=== PATIENT | male | born 1980 | race Caucasian/White ===

== ENCOUNTER 2016-03-17 18:15 | Inpatient (IN) | payer MEDICAID ==
[~2016-03-17] VITALS: Ht 175.3 cm; Wt 87.0 kg
[~2016-03-17 18:15] MED LIST: OMEP20TA PO; ONDA4 PO; RANI150T PO
[2016-03-17 18:28] VITALS: BP 126/87; PULSE 76; RESP 16; TEMP 98.6; O2SAT 98
[2016-03-17] MEDS ORDERED: SODIUM CHLOR 0.9% 1000 ML INJ 1,000 ML IV SCH (22:55)
--- NOTE | 2016-03-17 22:58 | PD ---
HPI Chief Complaint: Abdominal Pain Time Seen by Provider: 22:49 Travel History International Travel<30 days: No Contact w/Intl Traveler<30days: No Traveled to known affect area: No History of Present Illness HPI 36-year-old male here for evaluation of epigastric abdominal pain. The patient has been having intermittent epigastric abdominal pain for the last several months, worse and more constant over the last 4 days. Pain is described as pressure, radiates to his back, no modifying factors. He did become nauseous yesterday and had a few episodes of nonbloody/nonbilious emesis. No history of abdominal surgeries. No chest pain. No known history of cardiac disease. He smokes about a half a pack of cigarettes per day. States that he used to drink alcohol heavily when he was younger, only drinks alcohol occasionally over the last 8 years. He was seen in the emergency Department in April of last year and was found to have LFTs in the 4-500 range and was instructed to follow-up as an outpatient, however he has not done so. No history of IVDU. No fevers or chills. PFSH Past Medical History Diminished Hearing: No GERD: Yes Tetanus Vaccination: < 5 Years Influenza Vaccination: No Past Surgical History Surgical History: No Previous Surgery Social History Alcohol Use: No Tobacco Use: Yes (03/01 PPD) Substance Use: No Allergies-Medications (Allergen,Severity, Reaction): Coded Allergies: Penicillin (Verified Allergy, Severe, HIVES, 03/17/16) Reported Meds & Prescriptions Reported Meds & Active Scripts Active No Active Prescriptions or Reported Medications Review of Systems Except as stated in HPI: all other systems reviewed are Neg Physical Exam Narrative GENERAL: Well-developed, well-nourished, comfortable, no acute distress. SKIN: Warm and dry. No rash. HEAD: Atraumatic. Normocephalic. EYES: Pupils equal and round. No scleral icterus. No injection or drainage. ENT: Mucous membranes pink and moist. NECK: Trachea midline. No JVD. CARDIOVASCULAR: Regular rate and rhythm. RESPIRATORY: No accessory muscle use. Clear to auscultation. Breath sounds equal bilaterally. GASTROINTESTINAL: Abdomen soft, nondistended. Moderate epigastric tenderness without rebound or guarding. There is also some left upper quadrant tenderness. Negative Bush sign. Rest of abdomen is soft and nontender. No hernias. Normal bowel sounds. MUSCULOSKELETAL: No obvious deformities. No clubbing. No cyanosis. No edema. NEUROLOGICAL: Awake and alert. No obvious cranial nerve deficits. Motor grossly within normal limits. Normal speech. PSYCHIATRIC: Appropriate mood and affect; insight and judgment normal. Data Data Last Documented VS Vital Signs Date Time Temp Pulse Resp B/P Pulse Ox O2 Delivery O2 Flow Rate FiO2 03/17/16 23:57 70 16 116/81 96 Room Air 03/17/16 18:28 98.6 Orders Complete Blood Count With Diff (03/17/16 22:55) Comprehensive Metabolic Panel (03/17/16 22:55) Lipase (03/17/16 22:55) Prothrombin Time / Inr (Pt) (03/17/16 22:55) Act Partial Throm Time (Ptt) (03/17/16 22:55) Urinalysis - C+S If Indicated (03/17/16 22:55) Ct Abd/Pel W Iv Contrast(Rout) (03/17/16 22:55) Iv Access Insert/Monitor (03/17/16 22:55) Ecg Monitoring (03/17/16 22:55) Oximetry (03/17/16 22:55) Morphine Inj (Morphine Inj) (03/17/16 23:00) Ondansetron Inj (Zofran Inj) (03/17/16 23:00) Pantoprazole Inj (Protonix Inj) (03/17/16 23:00) Sodium Chlor 0.9% 1000 Ml Inj (Ns 1000 M (03/17/16 22:55) Sodium Chloride 0.9% Flush (Ns Flush) (03/17/16 23:00) Electrocardiogram (03/17/16 22:55) Al-Mag Hy-Si 40-40-4 Mg/Ml Liq (Mag-Al P (03/17/16 23:00) Lidocaine 2% Viscous (Xylocaine 2% Visco (03/17/16 23:00) Ckmb (Isoenzyme) Profile (03/17/16 22:55) Troponin I (03/17/16 22:55) CKMB (03/17/16 22:55) CKMB% (03/17/16 22:55) Iohexol 350 Inj (Omnipaque 350 Inj) (03/17/16 23:35) Levofloxacin 750 Mg Premix Inj (Levaquin (03/18/16 00:15) Diet Npo (03/18/16 Breakfast) Labs Laboratory Tests Test 03/17/16 03/17/16 22:45 22:55 Urine Color YELLOW Urine Turbidity CLEAR Urine pH 6.0 Urine Specific [place] 1.015 Urine Protein NEG mg/dL Urine Glucose (UA) NEG mg/dL Urine Ketones NEG mg/dL Urine Occult Blood NEG Urine Nitrite NEG Urine Bilirubin NEG Urine Leukocyte Esterase NEG Urine RBC 0-2 /hpf Urine WBC 0-2 /hpf Urine Squamous Epithelial 0-5 /hpf Cells Urine Bacteria NONE /hpf Microscopic Urinalysis Comment CULT NOT INDICATED White Blood Count 11.0 TH/MM3 Red Blood Count 5.12 MIL/MM3 Hemoglobin 16.0 GM/DL Hematocrit 48.2 % Mean Corpuscular Volume 94.1 FL Mean Corpuscular Hemoglobin 31.4 PG Mean Corpuscular Hemoglobin 33.3 % Concent Red Cell Distribution Width 11.8 % Platelet Count 267 TH/MM3 Mean Platelet Volume 8.2 FL Neutrophils (%) (Auto) 50.3 % Lymphocytes (%) (Auto) 38.9 % Monocytes (%) (Auto) 7.2 % Eosinophils (%) (Auto) 2.4 % Basophils (%) (Auto) 1.2 % Neutrophils # (Auto) 5.5 TH/MM3 Lymphocytes # (Auto) 4.3 TH/MM3 Monocytes # (Auto) 0.8 TH/MM3 Eosinophils # (Auto) 0.3 TH/MM3 Basophils # (Auto) 0.1 TH/MM3 CBC Comment DIFF FINAL Differential Comment Prothrombin Time 10.8 SEC Prothromb Time International 1.0 RATIO Ratio Activated Partial 26.8 SEC Thromboplast Time Sodium Level 140 MEQ/L Potassium Level 3.6 MEQ/L Chloride Level 104 MEQ/L Carbon Dioxide Level 29.2 MEQ/L Anion Gap 7 MEQ/L Blood Urea Nitrogen 14 MG/DL Creatinine 0.98 MG/DL Estimat Glomerular Filtration 87 ML/MIN Rate Random Glucose 98 MG/DL Calcium Level 9.0 MG/DL Total Bilirubin 0.5 MG/DL Aspartate Amino Transf 55 U/L (AST/SGOT) Alanine Aminotransferase 108 U/L (ALT/SGPT) Alkaline Phosphatase 79 U/L Total Creatine Kinase 178 U/L Creatine Kinase MB 2.0 NG/ML Troponin I LESS THAN 0.02 NG/ML Total Protein 7.7 GM/DL Albumin 3.9 GM/DL Lipase 139 U/L MDM Medical Decision Making Medical Screen Exam Complete: Yes Emergency Medical Condition: Yes Medical Record Reviewed: Yes Interpretation(s) EKG: Sinus, rate 62, normal axis, normal intervals, RSR prime in V1, no acute ischemic abnormality. Differential Diagnosis Gastritis, peptic ulcer disease, pancreatitis, hepatobiliary disease, ACS Narrative Course Vital signs are within normal limits. CBC is unremarkable. CMP is remarkable for AST 55, ALT 108, otherwise unremarkable. Cardiac enzymes are negative. Lipase is 139. UA is normal, not suggestive of UTI. CT abdomen pelvis: CONCLUSION: 4 mm distal common bile duct stone. 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 I did not believe he has ascending cholangitis. 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 Negro. He recommends starting the patient on prophylactic antibiotics and admitting the patient to the main hospital for ERCP tomorrow morning. The patient is allergic to penicillin. He will be started on Levaquin. The patient was made aware of all findings and plan for admission. Case discussed with hospitalist Dr. Leon who will admit the patient to her service. Diagnosis Primary Impression: Choledocholithiasis Scripts No Active Prescriptions or Reported Meds Guido Escobedo MD Mar 17, 2016 22:58
[2016-03-17] MEDS ORDERED: ONDANSETRON HCL 4 MG/2 ML VIAL IVP ONE (23:00)
[2016-03-17] MEDS ORDERED: ALUMINUM/MAGNESIUM/SIMETH 30 ML CUP PO ONE (23:00)
[2016-03-17] MEDS ORDERED: LIDOCAINE VISCOUS 2% SOLN 15 ML UDC PO ONE (23:00)
[2016-03-17] MEDS ORDERED: PANTOPRAZOLE SODIUM 40 MG VIAL IVP ONE (23:00)
[2016-03-17] MEDS ORDERED: MORPHINE SULFATE 4 MG/ML INJ IV PUSH ONE (23:00)
[2016-03-17] MEDS ORDERED: SODIUM CHLORIDE 0.9% FLUSH 5 ML FLUSH IVF PRN (23:00)
[2016-03-17 23:08] LABS: BLOOD, URINE NEG (NEG); GLUCOSE,URINE NEG (NEG); KETONE, URINE NEG (NEG); NITRITE,URINE NEG (NEG)
[2016-03-17 23:11] LABS: AUTOMATED NEUTROPHIL # 5.5 TH/MM3 (1.8-7.7); BASOPHIL # 0.1 TH/MM3 (0-0.2); BASOPHIL % 1.2 % (0.0-2.0); EOSINOPHIL # 0.3 TH/MM3 (0-0.4); EOSINOPHIL % 2.4 % (0.0-4.0); HEMATOCRIT 48.2 % (39.0-51.0); HEMO FLAGS DIFF FINAL; LYMPH % 38.9 % (9.0-44.0); LYMPHOCYTE # 4.3 TH/MM3 (1.0-4.8); MEAN CELL VOLUME 94.1 FL (80.0-100.0); MEAN CORPUSCULAR HEMOGLOBIN 31.4 PG (27.0-34.0); MEAN CORPUSCULAR HGB CONC 33.3 % (32.0-36.0); MONO % 7.2 % (0.0-8.0); NEUT % 50.3 % (16.0-70.0); PLATELET COUNT 267 TH/MM3 (150-450); RED BLOOD COUNT 5.12 MIL/MM3 (4.50-5.90); RED CELL DISTRIBUTION WIDTH 11.8 % (11.6-17.2)
[2016-03-17 23:16] LABS: URINE COLOR YELLOW (YELLW/STRAW); WBC, URINE 0-2 /hpf (0-5)
[2016-03-17 23:17] VITALS: PULSE 72; RESP 16; O2SAT 97
[2016-03-17 23:17] LABS: COMMENT (UR) CULT NOT INDICATED; CULTURE IF INDICATED CULT NOT INDICATED; RBC, URINE 0-2 /hpf (0-3); SQUAMOUS EPITHELIAL CELL URINE 0-5 /hpf (0-5)
[2016-03-17 23:18] LABS: CHLORIDE 104 MEQ/L (98-107); POTASSIUM 3.6 MEQ/L (3.5-5.1); SODIUM (NA) 140 MEQ/L (136-145)
[2016-03-17 23:22] LABS: ANION GAP 7 MEQ/L (5-15); BICARBONATE 29.2 MEQ/L (21.0-32.0); BLOOD UREA NITROGEN 14 MG/DL (7-18)
[2016-03-17 23:23] LABS: APTT (PATIENT) 26.8 SEC (24.3-30.1); PROTHROMBIN TIME - PATIENT 10.8 SEC (9.8-11.6)
[2016-03-17 23:25] LABS: ALT (GPT) 108 U/L (12-78); AST (GOT) 55 U/L (15-37); GLOMERULAR FILTRATION RATE 87 ML/MIN (>89)
[2016-03-17 23:26] LABS: TOTAL BILIRUBIN ADULT 0.5 MG/DL (0.2-1.0)
[2016-03-17 23:27] LABS: CREATINE KINASE 178 U/L (39-308)
[2016-03-17 23:28] LABS: ALKALINE PHOSPHATASE 79 U/L (45-117)
[2016-03-17] MEDS ORDERED: IOHEXOL 350 MG/ML 10 ML VIAL (for RAD DIAG) IV ONE (23:35)
--- NOTE | 2016-03-17 23:54 | RADHPO ---
EXAM DATE/TIME: 03/17/2016 23:30 [facility] COMPARISON: No previous studies available for comparison. INDICATIONS : Intermittent upper abdominal pain for three weeks. IV CONTRAST: 100 cc Omnipaque 350 (iohexol) IV ORAL CONTRAST: No oral contrast ingested. RADIATION DOSE: 13.19 CTDIvol (mGy) MEDICAL HISTORY : None SURGICAL HISTORY : None. ENCOUNTER: Initial ACUITY: 1 day PAIN SCALE: 5/10 LOCATION: Bilateral upper quadrant abdomen TECHNIQUE: Volumetric scanning of the abdomen and pelvis was performed. Using automated exposure control and ad justment of the mA and/or kV according to patient size, radiation dose was kept as low as reasonably achievable to obtain optimal diagnostic quality images. FINDINGS: LOWER LUNGS: There is a nearly 7 cm low density mass in the lower mediastinum adjacent to the distal esophagus. Th is has Hounsfield density measurements just greater than fluid. LIVER: There is no evidence of liver mass or intrahepatic biliary ductal dilatation. The extrahepatic biliar y tree is minimally prominent with common duct diameter of about 7 mm maximum. There is a 4 mm stone in the distal CBD at the level of the pancreatic head. Gallbladder is unremarkable with no additional stones identified. SPLEEN: Normal size without lesion. PANCREAS: Within normal limits. KIDNEYS: Normal in size and shape. There is no mass, stone or hydronephrosis. ADRENAL GLANDS: Within normal limits. VASCULAR: There is no aortic aneurysm. BOWEL/MESENTERY: The stomach, small bowel, and colon demonstrate no acute abnormality. There is no free intraperitone al air or fluid. ABDOMINAL WALL: Within normal limits. RETROPERITONEUM: There is no lymphadenopathy. BLADDER: No wall thickening or mass. REPRODUCTIVE: Within normal limits. INGUINAL: There is no lymphadenopathy or hernia. MUSCULOSKELETAL: Within normal limits for patient age. CONCLUSION: 4 mm distal common bile duct stone. 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 This report was verified electronically.
[2016-03-17 23:57] VITALS: BP 116/81; PULSE 70; RESP 16; O2SAT 96
[2016-03-18] MEDS ORDERED: LEVOFLOXACIN 750 MG PREMIX INJ 150 ML IV ONE (00:15)
[2016-03-18] MEDS: SODIUM CHLOR 0.9% 1000 ML INJ 1,000 ML IV SCH ×3 (00:29→18:24)
[2016-03-18] MEDS ORDERED: MORPHINE SULFATE 4 MG/ML INJ IV PUSH PRN (00:30)
[2016-03-18] MEDS ORDERED: NALOXONE HCL 0.4 MG/ML AMP IV PRN (00:30)
[2016-03-18] MEDS ORDERED: SODIUM CHLORIDE 0.9% FLUSH 5 ML FLUSH FLUSH PRN (00:30)
[2016-03-18] MEDS: metroNIDAZOLE 500 MG INJ 100 ML IV SCH ×4 (01:40→18:22)
[2016-03-18 02:46] VITALS: BP 123/78; PULSE 70; RESP 20; TEMP 98.3; O2SAT 97
--- NOTE | 2016-03-18 04:44 | HHI.HP ---
[facility] Primary [facility] Physician No Primary Care Physician Admission Diagnosis choledocholithiasis Diagnoses: Chief Complaint: abdominal pain Travel History International Travel<30 Days: No Contact w/Intl Traveler <30 Da: No Traveled to Known Affected Are: No History of Present Illness History taken from patient and ED physician. 36 y/o male with no medical history presented with complaints of sharp mid epigastric pain for 2 days with associated nausea and vomiting that began yesterday. He denies any chest pain, sob, fever or chills. He does not see a PCP because he states he has never been sick. Review of Systems Constitutional: DENIES: Fever, Chills Respiratory: DENIES: Cough, Sputum production, Shortness of breath Cardiovascular: DENIES: Chest pain, Lower Extremity Edema Gastrointestinal: COMPLAINS OF: Abdominal pain, Nausea, Vomiting, DENIES: Constipation, Diarrhea Genitourinary: DENIES: Hematuria, Dysuria Musculoskeletal: DENIES: Back pain, Neck pain Integumentary: DENIES: Rash Hematologic/lymphatic: DENIES: Lymphadenopathy Immunologic/allergic: DENIES: Urticaria Neurologic: DENIES: Headache Past Family Social History Past Medical History Patient denies any medical history Past Surgical History Patient denies any surgical history Reported Medications Reported Meds & Active Scripts Active No Active Prescriptions or Reported Medications Allergies: Coded Allergies: Penicillin (Verified Allergy, Severe, HIVES, 03/17/16) Active Ordered Medications Current Medications Medications (Trade) Dose Ordered Sig/Kat Route Start Time Stop Time Status Last Admin (NS 1000 ml Inj) 1,000 ml @ 100 mls/hr Q10H IV 03/18/16 00:29 03/18/16 00:29 (NS Flush) 2 ml UNSCH PRN FLUSH 03/18/16 00:30 (NS Flush) 2 ml BID FLUSH 03/18/16 09:00 (Zofran Inj) 4 mg Q6H PRN IVP 03/18/16 00:30 (Narcan Inj) 0.4 mg UNSCH PRN IV 03/18/16 00:30 Morphine Sulfate 2 mg 2 mg Q3H PRN IV PUSH 03/18/16 00:30 03/18/16 04:26 Levofloxacin/ Dextrose 150 ml @ 100 mls/hr Q24H IV 03/19/16 01:00 (Flagyl 500 Mg Inj) 100 ml @ 100 mls/hr Q6H IV 03/18/16 00:45 03/18/16 01:40 Family History Dad: diabetes Social History Tobacco use: 1 ppd Alcohol use: denies Illicit drug use: denies Physical Exam Vital Signs Vital Signs Date Time Temp Pulse Resp B/P Pulse Ox O2 Delivery O2 Flow Rate FiO2 03/18/16 02:46 98.3 70 20 123/78 97 03/17/16 23:57 70 16 116/81 96 Room Air 03/17/16 23:17 72 16 97 Room Air 03/17/16 18:28 98.6 76 16 126/87 98 Physical Exam GENERAL: This is a well-nourished, well-developed patient, in no apparent distress. SKIN: No rashes, ecchymoses or lesions. Cool and dry. HEAD: Atraumatic. Normocephalic. EYES: Pupils equal round and reactive. ENT: Nose without bleeding, purulent drainage or septal hematoma. Airway patent. NECK: Trachea midline. No JVD or lymphadenopathy. Supple, nontender, no meningeal signs. CARDIOVASCULAR: Regular rate and rhythm without murmurs, gallops, or rubs. RESPIRATORY: Clear to auscultation. Breath sounds equal bilaterally. No wheezes , rales, or rhonchi. GASTROINTESTINAL: Abdomen soft, mid epigastric tenderness, nondistended. MUSCULOSKELETAL: Extremities without clubbing, cyanosis, or edema. No calf tenderness. NEUROLOGICAL: Awake and alert. Motor and sensory grossly within normal limits. Normal speech. Laboratory Laboratory Tests Test 03/17/16 03/17/16 22:45 22:55 Urine Color YELLOW Urine Turbidity CLEAR Urine pH 6.0 Urine Specific [place] 1.015 Urine Protein NEG Urine Glucose (UA) NEG Urine Ketones NEG Urine Occult Blood NEG Urine Nitrite NEG Urine Bilirubin NEG Urine Leukocyte Esterase NEG Urine RBC 0-2 Urine WBC 0-2 Urine Squamous Epithelial 0-5 Cells Urine Bacteria NONE Microscopic Urinalysis Comment CULT NOT INDICATED White Blood Count 11.0 Red Blood Count 5.12 Hemoglobin 16.0 Hematocrit 48.2 Mean Corpuscular Volume 94.1 Mean Corpuscular Hemoglobin 31.4 Mean Corpuscular Hemoglobin 33.3 Concent Red Cell Distribution Width 11.8 Platelet Count 267 Mean Platelet Volume 8.2 Neutrophils (%) (Auto) 50.3 Lymphocytes (%) (Auto) 38.9 Monocytes (%) (Auto) 7.2 Eosinophils (%) (Auto) 2.4 Basophils (%) (Auto) 1.2 Neutrophils # (Auto) 5.5 Lymphocytes # (Auto) 4.3 Monocytes # (Auto) 0.8 Eosinophils # (Auto) 0.3 Basophils # (Auto) 0.1 CBC Comment DIFF FINAL Differential Comment Prothrombin Time 10.8 Prothromb Time International 1.0 Ratio Activated Partial 26.8 Thromboplast Time Sodium Level 140 Potassium Level 3.6 Chloride Level 104 Carbon Dioxide Level 29.2 Anion Gap 7 Blood Urea Nitrogen 14 Creatinine 0.98 Estimat Glomerular Filtration 87 Rate Random Glucose 98 Calcium Level 9.0 Total Bilirubin 0.5 Aspartate Amino Transf 55 (AST/SGOT) Alanine Aminotransferase 108 (ALT/SGPT) Alkaline Phosphatase 79 Total Creatine Kinase 178 Creatine Kinase MB 2.0 Troponin I LESS THAN 0.02 Total Protein 7.7 Albumin 3.9 Lipase 139 Result Diagram: 03/17/16225403/17/162254 Imaging Last Impressions Abdomen/Pelvis CT 03/17/162254 Signed Impressions: Service Date/Time: Thursday, March 17, 2016 23:30 - CONCLUSION: 4 mm distal common bile duct stone. 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 Leon on 03/17/16 at 0410. The documentation accurately reflects the work performed [id number] and decisions made by me and the physician Dr Leon on 03/17/16. The documentation accurately reflects the work performed [id number] by me on at 0410 Please note that this is a full inpatient admission note. Patient was admitted for choledocholithiasis/ERCP. Discussed Condition With Patient Misa Barahona Mar 18, 2016 04:44 Mariam Leon MD Mar 18, 2016 07:23
[2016-03-18 08:23] VITALS: BP 97/57; PULSE 74; RESP 18; TEMP 97.7; O2SAT 95
--- NOTE | 2016-03-18 08:44 | PD.CONS ---
HPI History of Present Illness This is a 36 year old male who has been having intermittent abdominal pain for awhile. This latest episode started on 02/27/16. This is a moderately severe pressure like pain in his epigastric area that radiates to his back. This was aggravated by any food intake. He did try some Pepcid AC, but states this actually made his symptoms worse. He also tried inducing vomiting once, but this did not help. About 2-3 days ago, the pain became worse and more constant. He had an episode of nausea/vomiting with undigested food. He denies any fever/chills/jaundice. He denies any bowel changes or constipation/ diarrhea, melena, or hematochezia. He denies any weight loss. Abdomen/Pelvis CT (03/17/16)-----> 4 mm distal common bile duct stone. 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 He denies any prior episodes of gallbladder issues. However, he was seen in the ER back in April form similar type pain and was noted to have elevated LFTs in an obstructive pattern at that time. He did not have any imaging done at that time and was discharged home with medicine for gastritis. (Tayla Albrecht) [facility] Past Medical History Denies Past Surgical History Denies (Tayla Albrecht) Coded Allergies: Penicillin (Verified Allergy, Severe, HIVES, 03/17/16) Medications Allergies Coded Allergies Type Severity Reaction Last Updated Verified Penicillin Allergy Severe HIVES 03/17/16 Yes Active Scripts Medications Dose Route/Sig Days Date Category No Active Prescriptions or Reported Medications Rx Family History Father has diabetes Mother from breast cancer Social History Smokes <1 ppd x 17 years No etoh, illicit drug use. (Tayla Albrecht) Review of Systems Constitutional: DENIES: Fatigue, Fever, Weight loss, Chills Respiratory: DENIES: Cough, Shortness of breath Cardiovascular: DENIES: Chest pain Gastrointestinal: COMPLAINS OF: Abdominal pain, Nausea, Vomiting, DENIES: Black stools, Bloody stools, Constipation, Diarrhea, Anorexia, Swelling of Abdomen, Heartburn, Hematemesis Musculoskeletal: COMPLAINS OF: Back pain Integumentary: DENIES: Abnormal pigmentation, Jaundice Hematologic/lymphatic: DENIES: Bruising Neurologic: DENIES: Headache Psychiatric: DENIES: Confusion (Tayla Albrecht) GI Exam Vitals I&O Vital Signs Date Time Temp Pulse Resp B/P Pulse Ox O2 Delivery O2 Flow Rate FiO2 03/18/16 08:23 97.7 74 18 97/57 95 03/18/16 02:46 98.3 70 20 123/78 97 03/17/16 23:57 70 16 116/81 96 Room Air 03/17/16 23:17 72 16 97 Room Air 03/17/16 18:28 98.6 76 16 126/87 98 I/O 03/17/16 03/17/16 03/17/16 03/18/16 03/18/16 03/18/16 07:00 15:00 23:00 07:00 15:00 23:00 Intake Total 1150 ml Output Total 300 ml Balance -300 ml 1150 ml Intake IV Total 1150 ml Output Urine Total 300 ml # Voids 1 Imaging Last Impressions Abdomen/Pelvis CT 03/17/16 2255 Signed Impressions: Service Date/Time: Thursday, March 17, 2016 23:30 - CONCLUSION: 4 mm distal common bile duct stone. 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 Sebas Cowart MD Laboratory Test 03/17/16 03/17/16 22:45 22:55 Urine Color YELLOW Urine Turbidity CLEAR Urine pH 6.0 Urine Specific [place] 1.015 Urine Protein NEG mg/dL Urine Glucose (UA) NEG mg/dL Urine Ketones NEG mg/dL Urine Occult Blood NEG Urine Nitrite NEG Urine Bilirubin NEG Urine Leukocyte Esterase NEG Urine RBC 0-2 /hpf Urine WBC 0-2 /hpf Urine Squamous Epithelial 0-5 /hpf Cells Urine Bacteria NONE /hpf Microscopic Urinalysis Comment CULT NOT INDICATED White Blood Count 11.0 TH/MM3 Red Blood Count 5.12 MIL/MM3 Hemoglobin 16.0 GM/DL Hematocrit 48.2 % Mean Corpuscular Volume 94.1 FL Mean Corpuscular Hemoglobin 31.4 PG Mean Corpuscular Hemoglobin 33.3 % Concent Red Cell Distribution Width 11.8 % Platelet Count 267 TH/MM3 Mean Platelet Volume 8.2 FL Neutrophils (%) (Auto) 50.3 % Lymphocytes (%) (Auto) 38.9 % Monocytes (%) (Auto) 7.2 % Eosinophils (%) (Auto) 2.4 % Basophils (%) (Auto) 1.2 % Neutrophils # (Auto) 5.5 TH/MM3 Lymphocytes # (Auto) 4.3 TH/MM3 Monocytes # (Auto) 0.8 TH/MM3 Eosinophils # (Auto) 0.3 TH/MM3 Basophils # (Auto) 0.1 TH/MM3 CBC Comment DIFF FINAL Differential Comment Prothrombin Time 10.8 SEC Prothromb Time International 1.0 RATIO Ratio Activated Partial 26.8 SEC Thromboplast Time Sodium Level 140 MEQ/L Potassium Level 3.6 MEQ/L Chloride Level 104 MEQ/L Carbon Dioxide Level 29.2 MEQ/L Anion Gap 7 MEQ/L Blood Urea Nitrogen 14 MG/DL Creatinine 0.98 MG/DL Estimat Glomerular Filtration 87 ML/MIN Rate Random Glucose 98 MG/DL Calcium Level 9.0 MG/DL Total Bilirubin 0.5 MG/DL Aspartate Amino Transf 55 U/L (AST/SGOT) Alanine Aminotransferase 108 U/L (ALT/SGPT) Alkaline Phosphatase 79 U/L Total Creatine Kinase 178 U/L Creatine Kinase MB 2.0 NG/ML Troponin I LESS THAN 0.02 NG/ML Total Protein 7.7 GM/DL Albumin 3.9 GM/DL Lipase 139 U/L Physical Examination HEENT: Normocephalic; atraumatic; no jaundice. Throat is clear. NECK: Neck is supple, no JVD, no lymphadenopathy. CHEST: CTA CARDIAC: RRR ABDOMEN: Soft, nondistended, mild epigastric tenderness; no hepatosplenomegaly ; bowel sounds are present in all four quadrants. EXTREMITIES: No clubbing, cyanosis, or edema. SKIN: Normal; no rash; no jaundice. EGG AND SPICE MIXER: No focal deficits; alert and oriented times three. (Tayla AlbrechtP) Assessment and Plan Plan ASSESSMENT: - Abdominal pain with Cholelithiasis, Choledocholithiasis. Abdomen/Pelvis CT ()-----> 4 mm distal common bile duct stone. 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 He has had intermittent abdominal pain for several months. He was evaluated in the ER in April and noted to have LFTs in an obstructive pattern at that time. He did not have any imaging done at that time and was discharged home with medicine for gastritis. This latest episode started on 02/27/16 and became constant/worse about 2-3 days ago He denies any fever/chills/jaundice. NPO. WBC unremarkable. LFT stable. He is on Levaquin and flagyl. Will need ERCP for removal of stone. Will consult GS for evaluation for lap. juanpablo. NPO. PLAN: - Plan for ercp with possible sphincterotomy, possible stent placement today - Obtain consents - NPO - CBC, CMP in am - GS evaluation for possible lap. juanpablo - Supportive care - Pt seen and examined by Dr. Negro and myself and this note is written on his behalf (Tayla Albrecht) Physician Comments Seen and examined with Ms. Ambrocio ROMERO, ercp planned for today. Surgical consultation for cholecystectomy. CT reviewed. Will follow, thank you (Evelina Negro MD) Tayla Albrecht Mar 18, 2016 08:44 Evelina Negro MD Mar 18, 2016 16:28
[2016-03-18] MEDS: ACETAMINOPHEN 325 MG TAB PO PRN (08:57)
[2016-03-18] MEDS: SODIUM CHLORIDE 0.9% FLUSH 5 ML FLUSH FLUSH SCH ×2 (08:57→21:06)
[2016-03-18] MEDS ORDERED: IOHEXOL 350 MG/ML 100 ML BTL (for RAD DIAG) OTHER ONE (11:00)
[2016-03-18] MEDS ORDERED: GLUCAGON 1 MG/ML VIAL IV ONE (11:03)
[2016-03-18] MEDS ORDERED: PROPOFOL 200 MG/20 ML AMP IV ONE (12:23)
[2016-03-18] MEDS ORDERED: DO NOT ADM ANY ANTICOAGULANT DRUGS XX PRN (13:00)
--- NOTE | 2016-03-18 13:08 | RADRPT ---
EXAM DATE/TIME: 03/18/2016 11:02 [facility] COMPARISON: No previous studies available for comparison. INDICATIONS : Stones, obstruction. FLUORO TIME: 12 minutes IMAGE COUNT: CONTRAST: Instilled by Ordering Physician MEDICAL HISTORY : Cholelithiasis. SURGICAL HISTORY : Cholecystectomy. ENCOUNTER: Initial ACUITY: 1 day PAIN SCORE: 0/10 LOCATION: Abdomen FINDINGS: An ERCP was performed by the ordering physician. The images demonstrate contrast in the common bile duct. There appears to be a small filling defect i n the distal common bile duct. CONCLUSION: ERCP as above. See report by the bundle person for a more detailed report. Gilbert Fabian MD on March 18, 2016 at 13:06 Board Certified Radiologist. This report was verified electronically.
[2016-03-18] MEDS: ACETAMINOPHEN/HYDROcodone 325 MG/7.5 MG TAB PO PRN (13:20)
[2016-03-18 13:30] VITALS: BP 137/84; PULSE 60; RESP 22; TEMP 96.4; O2SAT 96
[2016-03-18] MEDS: ONDANSETRON HCL 4 MG/2 ML VIAL IVP PRN ×2 (14:09→21:04)
[2016-03-18] MEDS: HYDROmorphone HCL PF 1 MG/ML VIAL IV PRN ×3 (14:10→22:24)
[2016-03-18] MEDS ORDERED: LEVOFLOXACIN 750 MG PREMIX INJ 100 ML IV SCH (14:45)
--- NOTE | 2016-03-18 15:34 | MB ---
cc: RONNIE ODOM M.D. DATE OF CONSULTATION: 03/18/2016. REASON FOR CONSULTATION: Cholelithiasis status post ERCP for choledocholithiasis. HISTORY OF PRESENT ILLNESS: This is a pleasant 36-year gentleman who has had problems with cholelithiasis for a little over a year. He came into the hospital here last year and was given some anti-ulcer medicine. He subsequently had recurrence of his symptoms around the end of January and came back into the emergency room complaining right upper quadrant pain, nausea, had a CT scan and was noted to have a stone in the distal duct with findings of acute cholecystitis. Surgery was consulted for surgical evaluation. He has undergone an ERCP and is recovering from that. Surgery was consulted. PAST MEDICAL HISTORY: Negative for any chronic medical problems. He does have this chronic epigastric pain. He does smoke. He has had some mild reflux. No neurologic, cardiac or respiratory disorders. 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 ALLERGIES: PENICILLIN. OUTPATIENT MEDICATIONS: He was on some anti-ulcer medicine as an outpatient some time ago but stopped. PHYSICAL EXAMINATION: GENERAL: On physical exam he is a pleasant gentleman. NECK: The neck is supple. CHEST: Clear. HEART: Regular rate. ABDOMEN: Thin and soft. He has a large tattoo on his abdomen in the midline. Some mild soreness in the mid epigastric and right upper quadrant area. He is able to move all extremities well. He does have tattoos. NEUROLOGIC: He is alert, oriented, appears to be awake enough to understand our discussion after his ERCP; this was done a few hours ago. IMAGING STUDIES: CT scan of the abdomen showed choledocholithiasis. ERCP draft report shows a sphincterotomy and extraction of the stone. LABORATORY DATA: Laboratory data showed a Chem-7 essentially normal. LFTs with slightly elevated liver enzymes. Coags are normal. White count 11, hemoglobin of 16 and hematocrit of 48. Urinalysis clean. ASSESSMENT: 36-year-old gentleman with choledocholithiasis. He had a common duct stone that was extracted today by gastroenterology. PLAN: 1. At this time make him NPO tonight. 2. We will plan laparoscopic cholecystectomy and possible open in the morning or afternoon depending on the OR schedule tomorrow. This was explained to the patient in detail and he appeared to understand. MD KAREN Landeros/ALIE /2:38 PM /3:27 PM
[2016-03-18 16:00] VITALS: BP 142/93; PULSE 60; RESP 18; TEMP 97.9; O2SAT 97
[2016-03-18 20:00] VITALS: BP 147/89; PULSE 67; RESP 16; TEMP 97.9; O2SAT 95
--- NOTE | 2016-03-18 21:02 | EKG ---
Date Performed: 03/17/2016 Time Performed: 23:08:48 PTAGE: 36 years EKG: Sinus rhythm rSr'(V1) - probable normal variant Normal ECG PREVIOUS TRACING : 03/17/2016 23.07 DOCTOR: Julian Monet Interpretating Date/Time 03/18/2016 21:00:22
[2016-03-19] VITALS (8 sets, daily range): BP systolic 120–155; BP diastolic 69–90; PULSE 76–96; RESP 16–20; TEMP 97.2–100.2; O2SAT 92–96
[2016-03-19] MEDS: metroNIDAZOLE 500 MG INJ 100 ML IV SCH ×4 (00:36→18:56)
[2016-03-19] MEDS: HYDROmorphone HCL PF 1 MG/ML VIAL IV PRN ×4 (03:06→19:30)
[2016-03-19] MEDS: SODIUM CHLOR 0.9% 1000 ML INJ 1,000 ML IV SCH ×2 (06:29→21:19)
[2016-03-19 07:16] LABS: AUTOMATED NEUTROPHIL # 13.9 TH/MM3 (1.8-7.7); BASOPHIL % 0.2 % (0.0-2.0); HEMATOCRIT 49.8 % (39.0-51.0); HEMO FLAGS DIFF FINAL; LYMPH % 7.4 % (9.0-44.0); LYMPHOCYTE # 1.2 TH/MM3 (1.0-4.8); MEAN CELL VOLUME 94.3 FL (80.0-100.0); MEAN CORPUSCULAR HEMOGLOBIN 32.4 PG (27.0-34.0); MEAN CORPUSCULAR HGB CONC 34.4 % (32.0-36.0); MONO % 6.5 % (0.0-8.0); NEUT % 85.9 % (16.0-70.0); PLATELET COUNT 240 TH/MM3 (150-450); RED BLOOD COUNT 5.28 MIL/MM3 (4.50-5.90); RED CELL DISTRIBUTION WIDTH 12.5 % (11.6-17.2); WHITE BLOOD COUNT 16.2 TH/MM3 (4.0-11.0)
[2016-03-19 07:29] LABS: ALKALINE PHOSPHATASE 78 U/L (45-117); TOTAL BILIRUBIN ADULT 0.7 MG/DL (0.2-1.0)
[2016-03-19 07:40] LABS: ALT (GPT) 89 U/L (12-78); ANION GAP 8 MEQ/L (5-15); BICARBONATE 23.1 MEQ/L (21.0-32.0); BLOOD UREA NITROGEN 8 MG/DL (7-18); CHLORIDE 104 MEQ/L (98-107); GLOMERULAR FILTRATION RATE 109 ML/MIN (>89); SODIUM (NA) 135 MEQ/L (136-145)
[2016-03-19 07:46] LABS: AST (GOT) 51 U/L (15-37)
[2016-03-19 07:47] LABS: POTASSIUM 5.1 MEQ/L (3.5-5.1)
[2016-03-19] MEDS: SODIUM CHLORIDE 0.9% FLUSH 5 ML FLUSH FLUSH SCH ×2 (08:48→21:00)
[2016-03-19] MEDS: ACETAMINOPHEN/HYDROcodone 325 MG/7.5 MG TAB PO PRN (12:29)
--- NOTE | 2016-03-19 13:27 | HHI.GIFU ---
Subjective Remarks Patient is accompanied by visitors, he is with complaints of LUQ pain since yesterday, he is febrile today (Joe,James ROMERO) Objective Vitals I&O Vital Signs Date Time Temp Pulse Resp B/P Pulse Ox O2 Delivery O2 Flow Rate FiO2 03/19/16 12:00 100.2 94 20 123/77 95 03/19/16 10:20 95 21 03/19/16 08:00 99.0 83 20 120/69 94 03/19/16 04:00 97.3 83 16 150/86 95 03/19/16 03:36 18 03/19/16 00:00 97.5 76 16 152/90 92 03/18/16 20:00 97.9 67 16 147/89 95 03/18/16 16:00 97.9 60 18 142/93 97 03/18/16 14:20 16 03/18/16 13:30 96.4 60 22 137/84 96 I/O 03/18/16 03/18/16 03/18/16 03/19/16 03/19/16 03/19/16 07:00 15:00 23:00 07:00 15:00 23:00 Intake Total 1150 ml 700 ml 1042 ml 830 ml 0 ml Balance 1150 ml 700 ml 1042 ml 830 ml 0 ml Intake Oral 240 ml 0 ml 0 ml IV Total 1150 ml 802 ml 830 ml Other 700 ml # Voids 0 3 4 # Bowel Movements 0 0 0 Laboratory Laboratory Tests Test 03/19/16 06:00 White Blood Count 16.2 Red Blood Count 5.28 Hemoglobin 17.1 Hematocrit 49.8 Mean Corpuscular Volume 94.3 Mean Corpuscular Hemoglobin 32.4 Mean Corpuscular Hemoglobin 34.4 Concent Red Cell Distribution Width 12.5 Platelet Count 240 Mean Platelet Volume 8.4 Neutrophils (%) (Auto) 85.9 Lymphocytes (%) (Auto) 7.4 Monocytes (%) (Auto) 6.5 Eosinophils (%) (Auto) 0.0 Basophils (%) (Auto) 0.2 Neutrophils # (Auto) 13.9 Lymphocytes # (Auto) 1.2 Monocytes # (Auto) 1.1 Eosinophils # (Auto) 0.0 Basophils # (Auto) 0.0 CBC Comment DIFF FINAL Differential Comment Sodium Level 135 Potassium Level 5.1 Chloride Level 104 Carbon Dioxide Level 23.1 Anion Gap 8 Blood Urea Nitrogen 8 Creatinine 0.80 Estimat Glomerular Filtration 109 Rate Random Glucose 92 Calcium Level 8.6 Total Bilirubin 0.7 Aspartate Amino Transf 51 (AST/SGOT) Alanine Aminotransferase 89 (ALT/SGPT) Alkaline Phosphatase 78 Total Protein 7.0 Albumin 3.5 Lipase 12363 Imaging Last Impressions GI Procedure 03/18/16 0000 Signed Impressions: Service Date/Time: February 11:02 - CONCLUSION: ERCP as above. See report by the boat tester for a more detailed report. Gilbert Fabian MD Abdomen/Pelvis CT 03/17/16 2255 Signed Impressions: Service Date/Time: Thursday, March 17, 2016 23:30 - CONCLUSION: 4 mm distal common bile duct stone. 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 Throat is clear. NECK: Neck is supple, no JVD, no lymphadenopathy. CHEST: Chest is clear to auscultation and percussion. CARDIAC: Regular rate and rhythm with no murmur gallop or rubs. ABDOMEN: Soft, nondistended, LUQ tenderness; no hepatosplenomegaly; bowel sounds are present in all four quadrants. EXTREMITIES: No clubbing, cyanosis, or edema. SKIN: Normal; no rash; no jaundice. SWISS MACHINIST: No focal deficits; alert and oriented times three. (James Diaz KNOCKER OUT) Assessment and Plan Plan ASSESSMENT: - Post ERCP pancreatitis- LUQ pain since yesterday, febrile, lipase 91704, WBC 16.2 - Choledocholithiasis- S/P ERCP on (03/18/16) with sphincterotomy and balloon sweep - Abdominal pain with Cholelithiasis, Choledocholithiasis. Abdomen/Pelvis CT ()-----> 4 mm distal common bile duct stone. 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 GS on the case, lap. juanpablo. on hold for now due to pancreatitis, NPO. PLAN: - NPO - Aggressive IV hydration - Pain meds - CBC, CMP in am - Lipase in am - s/p GS evaluation for possible lap. juanpablo - cont. abx - Supportive care - Pt seen and examined by Dr. Negro and myself and this note is written on his behalf (James Diaz) Physician Comments Seen and examined with Ms. Joe ROMERO, post procedure pancreatitis, improving. Aggressive ivf rehydration. Cholecystectomy when able. Discussed with pt. he would like to start clears. Also he would like cholecystectomy prior to dc. ( Evelina Negro MD) James Diaz Mar 19, 2016 13:27 Evelina Negro MD Mar 19, 2016 18:00
--- NOTE | 2016-03-19 15:57 | HHI.PR ---
Subjective Remarks Follow up for Choledocholithiasis, post ERCP pancreatitis. Patient currently complains of abdominal pain more in the upper mid abdomen. No fever, chills. Cholecystectomy was planned for today but has been postponed due to post ERCP pancreatitis. Objective Vitals Vital Signs Date Time Temp Pulse Resp B/P Pulse Ox O2 Delivery O2 Flow Rate FiO2 03/19/16 12:00 100.2 94 20 123/77 95 03/19/16 10:20 95 21 03/19/16 08:00 99.0 83 20 120/69 94 03/19/16 04:00 97.3 83 16 150/86 95 03/19/16 03:36 18 03/19/16 00:00 97.5 76 16 152/90 92 03/18/16 20:00 97.9 67 16 147/89 95 03/18/16 16:00 97.9 60 18 142/93 97 I/O 03/18/16 03/18/16 03/18/16 03/19/16 03/19/16 03/19/16 07:00 15:00 23:00 07:00 15:00 23:00 Intake Total 1150 ml 700 ml 1042 ml 830 ml 816 ml Balance 1150 ml 700 ml 1042 ml 830 ml 816 ml Intake Oral 240 ml 0 ml 0 ml IV Total 1150 ml 802 ml 830 ml 816 ml Other 700 ml # Voids 0 3 4 # Bowel Movements 0 0 0 Result Diagram: 03/19/16 0600 03/19/16 0600 Imaging Last Impressions GI Procedure 03/18/16 0000 Signed Impressions: Service Date/Time: February 11:02 - CONCLUSION: ERCP as above. See report by the cognos administrator for a more detailed report. Gilbert Fabian MD Abdomen/Pelvis CT 03/17/16 0008 Signed Impressions: Service Date/Time: Thursday, March 17, 2016 23:30 - CONCLUSION: 4 mm distal common bile duct stone. 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 SKIN: Warm and dry. HEAD: Normocephalic. EYES: No scleral icterus. No injection or drainage. NECK: Supple, trachea midline. No JVD or lymphadenopathy. CARDIOVASCULAR: Regular rate and rhythm without murmurs, gallops, or rubs. RESPIRATORY: Breath sounds equal bilaterally. No accessory muscle use. GASTROINTESTINAL: Abdomen soft, tender to palpation over epigastric area as well as lower abdomen. No distention. BS+ MUSCULOSKELETAL: No cyanosis, or edema. BACK: Nontender without obvious deformity. No CVA tenderness. Procedures ERCP on 03/18/2016. A/P Problem List: (1) Choledocholithiasis ICD Code: K80.50 Status: Acute Assessment and Plan Mr. Casillas is a 36 year old male with no significant medical history who presented to the ED on 03/17/2016 with sharp mid epigastric pain for 2 days prior to this admission. He reported associated nausea, vomiting. CT abd/pelvis showed 4mm distal CBD stone. Patient underwent ERCP on 03/18/2016. He had post ERCP pancreatitis with lipase 139 on admission ---> 80406. General surgery has been following along with GI. - Choledocholithiasis - Post ERCP pancreatitis - s/p ERCP on 03/18/2016 with sphincterotomy and balloon sweep - General surgery following patient. - Repeat CBC, CMP, lipase in the AM. - When patient is able to, we will start him on clear liquid or full liquid diet. - Continue [place] PRN, Dilaudid IV PRN - Continue Levaquin and Flagyl IV. - Continue IV fluid. Full code. SCDs. Ian Moy DO Mar 19, 2016 15:57
--- NOTE | 2016-03-19 18:06 | HHI.PR ---
Subjective Subjective Notes DAILY PROGRESS NOTE FOR SURGICAL ATTENDING, DR. MEGA OSBORN Patient seen about 0700 in severe abdominal pain Objective Vitals/I&O Vital Signs Date Time Temp Pulse Resp B/P Pulse Ox O2 Delivery O2 Flow Rate FiO2 03/19/16 16:00 97.2 90 16 125/75 94 03/19/16 10:20 21 03/18/16 12:05 Room Air 03/18/16 11:45 2 Labs Laboratory Tests Test 03/19/16 06:00 White Blood Count 16.2 Red Blood Count 5.28 Hemoglobin 17.1 Hematocrit 49.8 Mean Corpuscular Volume 94.3 Mean Corpuscular Hemoglobin 32.4 Mean Corpuscular Hemoglobin 34.4 Concent Red Cell Distribution Width 12.5 Platelet Count 240 Mean Platelet Volume 8.4 Neutrophils (%) (Auto) 85.9 Lymphocytes (%) (Auto) 7.4 Monocytes (%) (Auto) 6.5 Eosinophils (%) (Auto) 0.0 Basophils (%) (Auto) 0.2 Neutrophils # (Auto) 13.9 Lymphocytes # (Auto) 1.2 Monocytes # (Auto) 1.1 Eosinophils # (Auto) 0.0 Basophils # (Auto) 0.0 CBC Comment DIFF FINAL Differential Comment Sodium Level 135 Potassium Level 5.1 Chloride Level 104 Carbon Dioxide Level 23.1 Anion Gap 8 Blood Urea Nitrogen 8 Creatinine 0.80 Estimat Glomerular Filtration 109 Rate Random Glucose 92 Calcium Level 8.6 Total Bilirubin 0.7 Aspartate Amino Transf 51 (AST/SGOT) Alanine Aminotransferase 89 (ALT/SGPT) Alkaline Phosphatase 78 Total Protein 7.0 Albumin 3.5 Lipase 25172 Radiology Last Impressions GI Procedure 03/18/16 0000 Signed Impressions: Service Date/Time: February 11:02 - CONCLUSION: ERCP as above. See report by the school resource officer for a more detailed report. Gilbert Fabian MD Abdomen/Pelvis CT 03/17/16 2255 Signed Impressions: Service Date/Time: Thursday, March 17, 2016 23:30 - CONCLUSION: 4 mm distal common bile duct stone. 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 Sebas Cowart MD Cardiovascular: Regular Lungs: Clear Abdomen: Other (Non distended abdomen---- with severe pain with and without palpation localized in RUQ ) Extremities: No edema A/P Problem List: (1) Abnormal computerized tomography of biliary tract (2) Pancreatitis, gallstone (3) Choledocholithiasis (4) Elevated LFTs (5) Abdominal pain (6) History of smoking (7) Pancreatitis Assessment and Plan 36 year old male with Cholelithiasis s/p ERCP -Lipase 11,000 -Await decrease in lipase to proceed with lap juanpablo -Lap juanpablo for today has been cancelled -Patient aware and understands Attending Statement NOTE FOR SURGICAL ATTENDING, DR. MEGA OSBORN I agree with above assessment and plan. Patient amylase significantly elevated from yesterday after his ERCP We'll delay surgical intervention at this point Recheck clinical exam and lipase Possible cholecystectomy early next week depending on clinical status The exam, history, and the medical decision-making described in the above note were completed with the assistance of the mid-level provider. I reviewed and agree with the findings presented. I attest that I had a [id number] encounter with the patient on the same day, and personally performed and documented my assessment and findings in the medical record. The following services were provided during this hospital visit: Chart data review, vital sign assessments/reviewing monitor data Review of consultations notes if present. Medication orders/review and/or management Ordering and/or reviewing lab tests Ordering and/or interpreting/reviewing x-rays and/or diagnostic studies Care of the patient and discussion of the patient with the care team Documentation time To help prompt me to consider important information that might be impacting today's encounter and assessment, information from prior notes written by myself or my colleagues may have been "brought forward/copy and pasted" into today's note. Problem Qualifiers (1) Abdominal pain: Qualified Code: R10.84 - Generalized abdominal pain (2) Pancreatitis: Marcella Elizabeth Mar 19, 2016 18:06 Mega Osborn MD Mar 19, 2016 19:06
[2016-03-20] VITALS: BP 117/71; PULSE 92; RESP 18; TEMP 100.1; O2SAT 95
[2016-03-20] MEDS: metroNIDAZOLE 500 MG INJ 100 ML IV SCH ×5 (00:30→23:53)
[2016-03-20] MEDS: LEVOFLOXACIN 750 MG PREMIX INJ 150 ML IV SCH (01:30)
[2016-03-20] MEDS: HYDROmorphone HCL PF 1 MG/ML VIAL IV PRN ×6 (01:34→23:52)
[2016-03-20] MEDS: SODIUM CHLOR 0.9% 1000 ML INJ 1,000 ML IV SCH ×3 (02:29→17:26)
[2016-03-20 04:00] VITALS: BP 109/72; PULSE 116; RESP 18; TEMP 100.2; O2SAT 95
[2016-03-20 08:00] VITALS: BP 125/73; PULSE 81; RESP 16; TEMP 98.9; O2SAT 96
[2016-03-20 08:24] LABS: BASOPHIL % 0.1 % (0.0-2.0); EOSINOPHIL % 0.1 % (0.0-4.0); HEMATOCRIT 45.7 % (39.0-51.0); HEMO FLAGS DIFF FINAL; LYMPH % 6.5 % (9.0-44.0); LYMPHOCYTE # 1.2 TH/MM3 (1.0-4.8); MEAN CELL VOLUME 94.1 FL (80.0-100.0); MEAN CORPUSCULAR HEMOGLOBIN 32.3 PG (27.0-34.0); MEAN CORPUSCULAR HGB CONC 34.4 % (32.0-36.0); MONO % 8.4 % (0.0-8.0); NEUT % 84.9 % (16.0-70.0); PLATELET COUNT 193 TH/MM3 (150-450); RED BLOOD COUNT 4.85 MIL/MM3 (4.50-5.90); RED CELL DISTRIBUTION WIDTH 12.3 % (11.6-17.2); WHITE BLOOD COUNT 18.8 TH/MM3 (4.0-11.0)
[2016-03-20 08:50] LABS: ALKALINE PHOSPHATASE 77 U/L (45-117); ALT (GPT) 52 U/L (12-78); AST (GOT) 18 U/L (15-37); BICARBONATE 24.6 MEQ/L (21.0-32.0); BLOOD UREA NITROGEN 9 MG/DL (7-18); CHLORIDE 101 MEQ/L (98-107); GLOMERULAR FILTRATION RATE 103 ML/MIN (>89); POTASSIUM 3.8 MEQ/L (3.5-5.1); SODIUM (NA) 135 MEQ/L (136-145)
[2016-03-20 08:51] LABS: ANION GAP 9 MEQ/L (5-15)
[2016-03-20] MEDS: SODIUM CHLORIDE 0.9% FLUSH 5 ML FLUSH FLUSH SCH ×2 (09:00→20:04)
--- NOTE | 2016-03-20 11:29 | HHI.PR ---
Subjective Remarks Follow up for Choledocholithiasis, post ERCP pancreatitis. Mr. Casillas reports improvement of his abdominal pain. He does feel like he can start some clear liquid diet. He had low grade fever but currently afebrile. No nausea, vomiting. Objective Vitals Vital Signs Date Time Temp Pulse Resp B/P Pulse Ox O2 Delivery O2 Flow Rate FiO2 03/20/16 08:00 98.9 81 16 125/73 96 03/20/16 04:00 100.2 116 18 109/72 95 03/20/16 00:00 100.1 92 18 117/71 95 03/20/16 00:00 100.1 92 18 117/71 95 03/19/16 20:37 96 21 03/19/16 20:00 100.1 96 16 133/80 95 03/19/16 16:00 97.2 90 16 125/75 94 03/19/16 12:00 100.2 94 20 123/77 95 I/O 03/19/16 03/19/16 03/19/16 03/20/16 03/20/16 03/20/16 07:00 15:00 23:00 07:00 15:00 23:00 Intake Total 830 ml 816 ml 0 ml 0 ml Balance 830 ml 816 ml 0 ml 0 ml Intake Oral 0 ml 0 ml 0 ml 0 ml IV Total 830 ml 816 ml # Voids 3 4 3 2 # Bowel Movements 0 0 Result Diagram: 03/20/16 0640 03/20/16 0640 Imaging Last Impressions GI Procedure 03/18/16 0000 Signed Impressions: Service Date/Time: February 11:02 - CONCLUSION: ERCP as above. See report by the educational psychology professor for a more detailed report. Gilbert Fbaian MD Abdomen/Pelvis CT 03/17/16 6602 Signed Impressions: Service Date/Time: Thursday, March 17, 2016 23:30 - CONCLUSION: 4 mm distal common bile duct stone. 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 SKIN: Warm and dry. HEAD: Normocephalic. EYES: No scleral icterus. No injection or drainage. NECK: Supple, trachea midline. No JVD or lymphadenopathy. CARDIOVASCULAR: Regular rhythm, tachycardic without murmurs, gallops, or rubs. RESPIRATORY: Breath sounds equal bilaterally. No accessory muscle use. GASTROINTESTINAL: Abdomen soft, tender to palpation over epigastric area as well as lower abdomen. No distention. BS+ MUSCULOSKELETAL: No cyanosis, or edema. BACK: Nontender without obvious deformity. No CVA tenderness. Procedures ERCP on 03/18/2016. A/P Problem List: (1) Choledocholithiasis ICD Code: K80.50 Status: Acute Assessment and Plan Mr. Casillas is a 36 year old male with no significant medical history who presented to the ED on 03/17/2016 with sharp mid epigastric pain for 2 days prior to this admission. He reported associated nausea, vomiting. CT abd/pelvis showed 4mm distal CBD stone. Patient underwent ERCP on 03/18/2016. He had post ERCP pancreatitis with lipase 139 on admission ---> 87442. General surgery has been following along with GI. - Choledocholithiasis - Post ERCP pancreatitis - s/p ERCP on 03/18/2016 with sphincterotomy and balloon sweep - General surgery following patient - hopefully cholecystectomy early next week. - we will start him on clear liquid. Advance diet as tolerated. - Continue [place] PRN, Dilaudid IV PRN - Continue Levaquin and Flagyl IV. - Will monitor fever. If he has persistent fever, may need another CT abd/ pelvis and possibly changing abx to Meropenem and ID consult. - Continue IV fluid 150cc/hour. Full code. Lovenox for DVT prophylaxis. Ian Moy DO Mar 20, 2016 11:29 am
[2016-03-20 12:00] VITALS: BP 113/75; PULSE 99; RESP 16; TEMP 100.1; O2SAT 95
[2016-03-20 16:00] VITALS: BP 119/71; PULSE 109; RESP 16; TEMP 99.5; O2SAT 94
[2016-03-20 20:00] VITALS: BP 114/73; PULSE 109; RESP 18; TEMP 100.3; O2SAT 95
--- NOTE | 2016-03-20 21:11 | HHI.PR ---
Subjective Subjective Notes no acute issues pain better still significant pain tolerating clears Objective Vitals/I&O Vital Signs Date Time Temp Pulse Resp B/P Pulse Ox O2 Delivery O2 Flow Rate FiO2 03/20/16 20:00 100.3 109 18 114/73 95 03/19/16 20:37 21 03/18/16 12:05 Room Air 03/18/16 11:45 2 Labs Laboratory Tests Test 03/20/16 06:40 White Blood Count 18.8 Red Blood Count 4.85 Hemoglobin 15.7 Hematocrit 45.7 Mean Corpuscular Volume 94.1 Mean Corpuscular Hemoglobin 32.3 Mean Corpuscular Hemoglobin 34.4 Concent Red Cell Distribution Width 12.3 Platelet Count 193 Mean Platelet Volume 8.4 Neutrophils (%) (Auto) 84.9 Lymphocytes (%) (Auto) 6.5 Monocytes (%) (Auto) 8.4 Eosinophils (%) (Auto) 0.1 Basophils (%) (Auto) 0.1 Neutrophils # (Auto) 16.0 Lymphocytes # (Auto) 1.2 Monocytes # (Auto) 1.6 Eosinophils # (Auto) 0.0 Basophils # (Auto) 0.0 CBC Comment DIFF FINAL Differential Comment Sodium Level 135 Potassium Level 3.8 Chloride Level 101 Carbon Dioxide Level 24.6 Anion Gap 9 Blood Urea Nitrogen 9 Creatinine 0.84 Estimat Glomerular Filtration 103 Rate Random Glucose 83 Calcium Level 8.0 Total Bilirubin 1.0 Aspartate Amino Transf 18 (AST/SGOT) Alanine Aminotransferase 52 (ALT/SGPT) Alkaline Phosphatase 77 Total Protein 6.4 Albumin 3.0 Lipase 3253 Radiology Last Impressions GI Procedure 03/18/16 0000 Signed Impressions: Service Date/Time: February 11:02 - CONCLUSION: ERCP as above. See report by the liquid yeast supervisor for a more detailed report. Gilbert Fabian MD Abdomen/Pelvis CT 03/17/16 1359 Signed Impressions: Service Date/Time: Thursday, March 17, 2016 23:30 - CONCLUSION: 4 mm distal common bile duct stone. 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 will need lap juanpablo when pancreatitis cools off, likely Tuesday Problem Qualifiers (1) Abdominal pain: Qualified Code: R10.84 - Generalized abdominal pain (2) Pancreatitis: Angelo Burns MD Mar 20, 2016 21:11
[2016-03-21] VITALS: BP 107/72; PULSE 103; RESP 18; TEMP 100.4; O2SAT 94
[2016-03-21] MEDS: LEVOFLOXACIN 750 MG PREMIX INJ 150 ML IV SCH (01:08)
[2016-03-21] MEDS: SODIUM CHLOR 0.9% 1000 ML INJ 1,000 ML IV SCH ×4 (01:29→22:20)
[2016-03-21] MEDS: ACETAMINOPHEN/HYDROcodone 325 MG/7.5 MG TAB PO PRN (03:18)
[2016-03-21 04:00] VITALS: BP 141/91; PULSE 93; RESP 18; TEMP 98.8; O2SAT 96
[2016-03-21] MEDS: HYDROmorphone HCL PF 1 MG/ML VIAL IV PRN ×6 (04:11→22:22)
[2016-03-21] MEDS: metroNIDAZOLE 500 MG INJ 100 ML IV SCH ×3 (06:06→18:17)
[2016-03-21 08:00] VITALS: BP 109/78; PULSE 90; RESP 14; TEMP 97.3; O2SAT 94; O2SAT 98
--- NOTE | 2016-03-21 08:21 | HHI.PR ---
Subjective Remarks Follow-up pancreatitis, leukocytosis. The patient is still having upper abdominal pain, but states that the pain is subsiding. Better today than it was yesterday. No nausea or vomiting. Tolerated clear liquid diet. Objective Vitals Vital Signs Date Time Temp Pulse Resp B/P Pulse Ox O2 Delivery O2 Flow Rate FiO2 03/21/16 04:00 98.8 93 18 141/91 96 03/21/16 00:00 100.4 103 18 107/72 94 03/20/16 20:00 100.3 109 18 114/73 95 03/20/16 16:00 99.5 109 16 119/71 94 03/20/16 12:00 100.1 99 16 113/75 95 I/O 03/20/16 03/20/16 03/20/16 03/21/16 03/21/16 03/21/16 07:00 15:00 23:00 07:00 15:00 23:00 Intake Total 0 ml 960 ml 1918 ml 240 ml Balance 0 ml 960 ml 1918 ml 240 ml Intake Oral 0 ml 960 ml 720 ml 240 ml IV Total 1198 ml # Voids 2 6 5 2 # Bowel Movements 0 Result Diagram: 03/20/16 0640 03/20/16 0640 Imaging Last Impressions GI Procedure 03/18/16 0000 Signed Impressions: Service Date/Time: February 11:02 - CONCLUSION: ERCP as above. See report by the supervising film or videotape editor for a more detailed report. Gilbert Fabian MD Abdomen/Pelvis CT 03/17/16 8985 Signed Impressions: Service Date/Time: Thursday, March 17, 2016 23:30 - CONCLUSION: 4 mm distal common bile duct stone. 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 Heart: Regular rate and rhythm. No murmur. Lungs: Clear to auscultation bilaterally. No wheezes, rales, or rhonchi. Breathing is nonlabored. Abdomen: Soft, tender to palpation from umbilicus to mid epigastric region, nondistended. Extremities: No lower extremity edema. Psych: Alert and oriented. Procedures ERCP on 03/18/2016. Urinary Catheter: No Vascular Central Line Catheter: No A/P Problem List: (1) Choledocholithiasis ICD Code: K80.50 Status: Acute (2) Pancreatitis ICD Code: K85.90 Status: Acute (3) Elevated LFTs ICD Code: R94.5 Status: Resolved (4) Leukocytosis ICD Code: D72.829 Status: Acute Assessment and Plan 1. Post procedure pancreatitis: Patient developed pancreatitis following ERCP. Appreciate GI recommendations. Continue pain control. Continue antibiotics, Levaquin and Flagyl. Continue IV fluids. 2. Choledocholithiasis: General surgery planning for cholecystectomy when pancreatic inflammation is improved. 3. Leukocytosis: Labs are pending today. 4. DVT prophylaxis: SCDs. Problem Qualifiers (1) Pancreatitis: Donald Hernandez MD Mar 21, 2016 08:21
[2016-03-21] MEDS: SODIUM CHLORIDE 0.9% FLUSH 5 ML FLUSH FLUSH SCH ×2 (09:32→20:42)
[2016-03-21 11:21] LABS: AUTOMATED NEUTROPHIL # 11.4 TH/MM3 (1.8-7.7); BASOPHIL # 0.1 TH/MM3 (0-0.2); BASOPHIL % 0.4 % (0.0-2.0); EOSINOPHIL % 0.2 % (0.0-4.0); HEMO FLAGS DIFF FINAL; LYMPH % 10.6 % (9.0-44.0); LYMPHOCYTE # 1.5 TH/MM3 (1.0-4.8); MEAN CELL VOLUME 93.7 FL (80.0-100.0); MEAN CORPUSCULAR HEMOGLOBIN 32.3 PG (27.0-34.0); MEAN CORPUSCULAR HGB CONC 34.5 % (32.0-36.0); NEUT % 80.8 % (16.0-70.0); PLATELET COUNT 164 TH/MM3 (150-450); RED BLOOD COUNT 4.38 MIL/MM3 (4.50-5.90); RED CELL DISTRIBUTION WIDTH 12.4 % (11.6-17.2); WHITE BLOOD COUNT 14.2 TH/MM3 (4.0-11.0)
[2016-03-21 12:00] VITALS: BP 120/76; PULSE 98; RESP 16; TEMP 98; O2SAT 98
--- NOTE | 2016-03-21 12:24 | HHI.PR ---
Subjective Subjective Notes feels better, tolerating diet, pain improved Objective Vitals/I&O Vital Signs Date Time Temp Pulse Resp B/P Pulse Ox O2 Delivery O2 Flow Rate FiO2 03/21/16 12:00 98.0 98 16 120/76 98 03/21/16 08:00 21 03/18/16 12:05 Room Air 03/18/16 11:45 2 Labs Laboratory Tests Test 03/21/16 10:45 White Blood Count 14.2 Red Blood Count 4.38 Hemoglobin 14.1 Hematocrit 41.0 Mean Corpuscular Volume 93.7 Mean Corpuscular Hemoglobin 32.3 Mean Corpuscular Hemoglobin 34.5 Concent Red Cell Distribution Width 12.4 Platelet Count 164 Mean Platelet Volume 8.1 Neutrophils (%) (Auto) 80.8 Lymphocytes (%) (Auto) 10.6 Monocytes (%) (Auto) 8.0 Eosinophils (%) (Auto) 0.2 Basophils (%) (Auto) 0.4 Neutrophils # (Auto) 11.4 Lymphocytes # (Auto) 1.5 Monocytes # (Auto) 1.1 Eosinophils # (Auto) 0.0 Basophils # (Auto) 0.1 CBC Comment DIFF FINAL Differential Comment Lipase 358 Radiology Last Impressions GI Procedure 03/18/16 0000 Signed Impressions: Service Date/Time: February 11:02 - CONCLUSION: ERCP as above. See report by the inter fold roll cutter for a more detailed report. Gilbert Fabian MD Abdomen/Pelvis CT 03/17/16 2255 Signed Impressions: Service Date/Time: Thursday, March 17, 2016 23:30 - CONCLUSION: 4 mm distal common bile duct stone. 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 Osborn Problem Qualifiers (1) Abdominal pain: Qualified Code: R10.84 - Generalized abdominal pain (2) Pancreatitis: Randy Ortiz MD Mar 21, 2016 12:24
[2016-03-21 16:00] VITALS: BP 128/78; PULSE 97; RESP 16; TEMP 98.1; O2SAT 95
[2016-03-21 20:00] VITALS: BP 113/75; PULSE 97; RESP 18; TEMP 100.4; O2SAT 97
[2016-03-22] VITALS: BP 113/75; PULSE 90; RESP 18; TEMP 99.8; O2SAT 97
[2016-03-22] MEDS: metroNIDAZOLE 500 MG INJ 100 ML IV SCH ×4 (00:22→18:04)
[2016-03-22] MEDS: LEVOFLOXACIN 750 MG PREMIX INJ 150 ML IV SCH (01:35)
[2016-03-22] MEDS: HYDROmorphone HCL PF 1 MG/ML VIAL IV PRN (02:27)
[2016-03-22 04:00] VITALS: BP 110/69; PULSE 93; RESP 18; TEMP 99.8; O2SAT 98
[2016-03-22 07:18] LABS: AUTOMATED NEUTROPHIL # 9.6 TH/MM3 (1.8-7.7); BASOPHIL # 0.1 TH/MM3 (0-0.2); BASOPHIL % 0.4 % (0.0-2.0); EOSINOPHIL # 0.1 TH/MM3 (0-0.4); EOSINOPHIL % 0.7 % (0.0-4.0); HEMATOCRIT 39.8 % (39.0-51.0); HEMO FLAGS DIFF FINAL; LYMPHOCYTE # 2.4 TH/MM3 (1.0-4.8); MEAN CELL VOLUME 93.9 FL (80.0-100.0); MEAN CORPUSCULAR HGB CONC 34.1 % (32.0-36.0); MONO % 7.7 % (0.0-8.0); NEUT % 73.2 % (16.0-70.0); PLATELET COUNT 198 TH/MM3 (150-450); RED BLOOD COUNT 4.23 MIL/MM3 (4.50-5.90); RED CELL DISTRIBUTION WIDTH 12.5 % (11.6-17.2); WHITE BLOOD COUNT 13.1 TH/MM3 (4.0-11.0)
[2016-03-22 07:30] VITALS: BP 133/80; PULSE 86; RESP 20; TEMP 98.9; O2SAT 97
[2016-03-22] MEDS: SODIUM CHLORIDE 0.9% FLUSH 5 ML FLUSH FLUSH SCH ×2 (08:00→21:00)
--- NOTE | 2016-03-22 08:22 | HHI.PR ---
Subjective Remarks Follow up pancreatitis. Going for cholecystectomy today. Pain is improved. No dyspnea, chest pain, nausea, vomiting. Objective Vitals Vital Signs Date Time Temp Pulse Resp B/P Pulse Ox O2 Delivery O2 Flow Rate FiO2 03/22/16 04:00 99.8 93 18 110/69 98 03/22/16 00:00 99.8 90 18 113/75 97 03/21/16 20:00 100.4 97 18 113/75 97 03/21/16 16:00 98.1 97 16 128/78 95 03/21/16 12:00 98.0 98 16 120/76 98 I/O 03/21/16 03/21/16 03/21/16 03/22/16 03/22/16 03/22/16 07:00 15:00 23:00 07:00 15:00 23:00 Intake Total 240 ml 960 ml 240 ml 0 ml Balance 240 ml 960 ml 240 ml 0 ml Intake Oral 240 ml 960 ml 240 ml 0 ml # Voids 2 4 2 2 # Bowel Movements 0 0 1 Result Diagram: 03/22/16 0600 03/20/16 0640 Imaging Last Impressions GI Procedure 03/18/16 0000 Signed Impressions: Service Date/Time: February 11:02 - CONCLUSION: ERCP as above. See report by the neighborhood conservation officer for a more detailed report. Gilbert Fabian MD Abdomen/Pelvis CT 03/17/16 1306 Signed Impressions: Service Date/Time: Thursday, March 17, 2016 23:30 - CONCLUSION: 4 mm distal common bile duct stone. 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 Heart: Regular rate and rhythm. No murmur. Lungs: Clear to auscultation bilaterally. No wheezes, rales, or rhonchi. Breathing is nonlabored. Abdomen: Soft, tender to palpation from umbilicus to mid epigastric region, nondistended. Extremities: No lower extremity edema. Psych: Alert and oriented. Procedures ERCP on 03/18/2016. Urinary Catheter: No Vascular Central Line Catheter: No A/P Problem List: (1) Choledocholithiasis ICD Code: K80.50 Status: Acute (2) Pancreatitis ICD Code: K85.90 Status: Acute (3) Elevated LFTs ICD Code: R94.5 Status: Resolved (4) Leukocytosis ICD Code: D72.829 Status: Acute Assessment and Plan 1. Post procedure pancreatitis: Patient developed pancreatitis following ERCP. Appreciate GI recommendations. Continue pain control. Continue antibiotics, Levaquin and Flagyl. Continue IV fluids. Lipase now WNL. 2. Choledocholithiasis: General surgery planning for cholecystectomy today. 3. Leukocytosis: Improving. 4. DVT prophylaxis: SCDs. Discharge Planning When cleared by surgery. Problem Qualifiers (1) Pancreatitis: Donald Hernandez MD Mar 22, 2016 08:22
[2016-03-22] MEDS ORDERED: PROPOFOL 200 MG/20 ML AMP IV ONE (09:40)
[2016-03-22] MEDS ORDERED: NEOSTIGMINE 3 MG/3 ML SYR IV ONE (09:40)
[2016-03-22] MEDS ORDERED: BUPIVACAINE/EPINEPHRINE 0.25% PF 10 ML VIAL ONE (09:52)
[2016-03-22] MEDS ORDERED: BUPIVACAINE/EPINEPHRINE 0.5% 50 ML VIAL ONE (09:53)
[2016-03-22] MEDS ORDERED: BUPIVACAINE/EPINEPHRINE 0.25% PF 30 ML VIAL ONE (09:55)
[2016-03-22] MEDS ORDERED: LEVOFLOXACIN 500 MG PREMIX INJ 100 ML IV ONE (10:10)
[2016-03-22] MEDS ORDERED: ACETAMINOPHEN 1000 MG/100 ML VIAL IV ONE (10:20)
[2016-03-22] MEDS ORDERED: MIDAZOLAM HCL 2 MG/2 ML VIAL ONE (10:20)
[2016-03-22] MEDS ORDERED: FAMOTIDINE 20 MG/2 ML VIAL ONE (10:20)
[2016-03-22] MEDS ORDERED: fentaNYL CITRATE 250 MCG/5 ML AMP ONE (10:21)
[2016-03-22] MEDS ORDERED: ONDANSETRON HCL 4 MG/2 ML VIAL ONE (10:21)
--- NOTE | 2016-03-22 11:24 | HHI.PR ---
cc: Mega Osborn MD Immediate Post Op Note Procedure Date: Mar 22, 2016 Pre Op Diagnosis: (1) Choledocholithiasis (2) Pancreatitis, gallstone (3) Pancreatitis (4) Elevated LFTs (5) Abdominal pain (6) Abnormal computerized tomography of biliary tract Post Op Diagnosis: (1) Choledocholithiasis (2) Pancreatitis, gallstone (3) Pancreatitis (4) Leukocytosis (5) Elevated LFTs (6) Abdominal pain (7) History of smoking (8) Abnormal computerized tomography of biliary tract Surgeon: Mega Osborn Airplane Designer(s): Please refer to OR record Procedure: Laparoscopic cholecystectomy Findings: Inflamed gallbladder Complications: None Specimen(s) removed: Gallbladder Estimated blood loss: Minimal Anesthesia: General Drains: None IVF Patient to: PACU Patient Condition: Good Implant/Devices: SEE IMPLANT LOG (if applicable) Date/Time of Procedure: SEE SURGICAL CARE RECORD Mega Osborn MD Mar 22, 2016 11:24
[2016-03-22] MEDS ORDERED: NORC5TAB PO (11:26)
[2016-03-22] MEDS ORDERED: DO NOT ADM ANY ANTICOAGULANT DRUGS XX PRN (12:15)
[2016-03-22 15:50] VITALS: BP 127/96; PULSE 76; RESP 20; TEMP 97.4; O2SAT 97
--- NOTE | 2016-03-22 17:03 | HHI.GIFU ---
Subjective Remarks Resting in bed. Had cholecystectomy. Feeling good. Mildly bloated, but no n/ v. Pain controlled (Tayla Albrecht) Objective Vitals I&O Vital Signs Date Time Temp Pulse Resp B/P Pulse Ox O2 Delivery O2 Flow Rate FiO2 03/22/16 12:30 98.2 72 16 117/75 95 Nasal Cannula 2 03/22/16 12:15 69 15 120/70 94 Nasal Cannula 2 03/22/16 12:00 68 14 124/69 97 Nasal Cannula 3 03/22/16 11:45 67 13 122/72 94 Nasal Cannula 3 03/22/16 11:32 98.0 71 12 123/73 99 Simple Mask 7 03/22/16 07:30 98.9 86 20 133/80 97 03/22/16 04:00 99.8 93 18 110/69 98 03/22/16 00:00 99.8 90 18 113/75 97 03/21/16 20:00 100.4 97 18 113/75 97 I/O 03/21/16 03/21/16 03/21/16 03/22/16 03/22/16 03/22/16 07:00 15:00 23:00 07:00 15:00 23:00 Intake Total 240 ml 960 ml 240 ml 0 ml 1442 ml Output Total 10 ml Balance 240 ml 960 ml 240 ml 0 ml 1432 ml Intake Oral 240 ml 960 ml 240 ml 0 ml IV Total 442 ml Other 1000 ml Estimated Blood Loss 10 ml # Voids 2 4 2 2 0 # Bowel Movements 0 0 1 Laboratory Laboratory Tests Test 03/22/16 06:00 White Blood Count 13.1 Red Blood Count 4.23 Hemoglobin 13.6 Hematocrit 39.8 Mean Corpuscular Volume 93.9 Mean Corpuscular Hemoglobin 32.0 Mean Corpuscular Hemoglobin 34.1 Concent Red Cell Distribution Width 12.5 Platelet Count 198 Mean Platelet Volume 8.3 Neutrophils (%) (Auto) 73.2 Lymphocytes (%) (Auto) 18.0 Monocytes (%) (Auto) 7.7 Eosinophils (%) (Auto) 0.7 Basophils (%) (Auto) 0.4 Neutrophils # (Auto) 9.6 Lymphocytes # (Auto) 2.4 Monocytes # (Auto) 1.0 Eosinophils # (Auto) 0.1 Basophils # (Auto) 0.1 CBC Comment DIFF FINAL Differential Comment Lipase 226 Imaging Last Impressions GI Procedure 03/18/16 0000 Signed Impressions: Service Date/Time: February 11:02 - CONCLUSION: ERCP as above. See report by the roll builder for a more detailed report. Gilbert Fabian MD Abdomen/Pelvis CT 03/17/16 2255 Signed Impressions: Service Date/Time: Thursday, March 17, 2016 23:30 - CONCLUSION: 4 mm distal common bile duct stone. 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 Throat is clear. NECK: Neck is supple, no JVD, no lymphadenopathy. CHEST: CTA CARDIAC: RRR ABDOMEN: Soft, mildly distended, no hepatosplenomegaly; bowel sounds are present in all four quadrants. EXTREMITIES: No clubbing, cyanosis, or edema. SKIN: Normal; no rash; no jaundice. SPECIAL POLICE OFFICER: No focal deficits; alert and oriented times three. (aTyla Albrecht) Assessment and Plan Plan ASSESSMENT: - Abdominal pain with Cholelithiasis, Choledocholithiasis. Abdomen/Pelvis CT ()-----> 4 mm distal common bile duct stone. 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 He has had intermittent abdominal pain for several months. He was evaluated in the ER in April and noted to have LFTs in an obstructive pattern at that time. He did not have any imaging done at that time and was discharged home with medicine for gastritis. S/P ERCP on (03/18/16 ) with sphincterotomy and balloon sweep. S/P Lap. Christen today by . - Post ERCP pancreatitis. Improved. Lipase 226. PLAN: - Diet per GS - S/P Lap. Christen by GS - Levaquin/Flagyl - Supportive care - Pt seen and examined by and myself and this note is written on her behalf (Tayla Albrecht) Physician Comments seen, examined agree with above if stable and tolerating diet can be dc in am may need eus op if dc fu office (Bratu,BriannaTayla Bradley Mar 22, 2016 17:03 Brianna Caba MD Mar 22, 2016 17:51
[2016-03-22] MEDS: ACETAMINOPHEN/HYDROcodone 325 MG/7.5 MG TAB PO PRN ×2 (18:06→22:50)
[2016-03-22] MEDS: SODIUM CHLOR 0.9% 1000 ML INJ 1,000 ML IV SCH ×3 (18:09→22:51)
[2016-03-22 20:31] VITALS: BP 118/72; PULSE 84; RESP 16; TEMP 99.6; O2SAT 95
[2016-03-22 22:45] VITALS: TEMP 101
[2016-03-22] MEDS: ACETAMINOPHEN 325 MG TAB PO PRN (22:50)
[2016-03-23] VITALS: BP 107/67; PULSE 88; RESP 16; TEMP 100.6; O2SAT 94
[2016-03-23] MEDS: metroNIDAZOLE 500 MG INJ 100 ML IV SCH ×3 (00:48→12:46)
[2016-03-23] MEDS: LEVOFLOXACIN 750 MG PREMIX INJ 150 ML IV SCH (02:08)
[2016-03-23 04:35] VITALS: BP 106/61; PULSE 73; RESP 16; TEMP 98.8; O2SAT 94
[2016-03-23] MEDS: SODIUM CHLOR 0.9% 1000 ML INJ 1,000 ML IV SCH (05:56)
[2016-03-23] MEDS: ACETAMINOPHEN 325 MG TAB PO PRN (06:02)
[2016-03-23 07:59] VITALS: BP 102/70; PULSE 88; RESP 20; TEMP 98.7; O2SAT 97
[2016-03-23] MEDS: SODIUM CHLORIDE 0.9% FLUSH 5 ML FLUSH FLUSH SCH (08:00)
--- NOTE | 2016-03-23 09:04 | HHI.PR ---
Subjective Remarks Follow up fever, cholecystectomy. Patient states that he feels much better today. No abdominal pain at this time. Had fever to 101 overnight. Denies cough/ dyspnea. No nausea/vomiting. Tolerating regular diet. Objective Vitals Vital Signs Date Time Temp Pulse Resp B/P Pulse Ox O2 Delivery O2 Flow Rate FiO2 03/23/16 07:59 98.7 88 20 102/70 97 03/23/16 04:35 98.8 73 16 106/61 94 03/23/16 00:00 100.6 88 16 107/67 94 03/22/16 22:45 101.0 03/22/16 20:31 99.6 84 16 118/72 95 03/22/16 15:50 97.4 76 20 127/96 97 03/22/16 12:30 98.2 72 16 117/75 95 Nasal Cannula 2 03/22/16 12:15 69 15 120/70 94 Nasal Cannula 2 03/22/16 12:00 68 14 124/69 97 Nasal Cannula 3 03/22/16 11:45 67 13 122/72 94 Nasal Cannula 3 03/22/16 11:32 98.0 71 12 123/73 99 Simple Mask 7 I/O 03/22/16 03/22/16 03/22/16 03/23/16 03/23/16 03/23/16 07:00 15:00 23:00 07:00 15:00 23:00 Intake Total 0 ml 1712 ml 600 ml 2245 ml Output Total 760 ml Balance 0 ml 952 ml 600 ml 2245 ml Intake Oral 0 ml 270 ml 600 ml IV Total 442 ml 2245 ml Other 1000 ml Output Urine Total 750 ml Estimated Blood Loss 10 ml # Voids 2 1 2 # Bowel Movements 1 0 Result Diagram: 03/22/16 0600 03/20/16 0640 Imaging Last Impressions GI Procedure 03/18/16 0000 Signed Impressions: Service Date/Time: February 11:02 - CONCLUSION: ERCP as above. See report by the speech writer for a more detailed report. Gilbert Fabian MD Abdomen/Pelvis CT 03/17/16 2321 Signed Impressions: Service Date/Time: Thursday, March 17, 2016 23:30 - CONCLUSION: 4 mm distal common bile duct stone. 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 Heart: Regular rate and rhythm. No murmur. Lungs: Clear to auscultation bilaterally. No wheezes, rales, or rhonchi. Breathing is nonlabored. Abdomen: Soft, nontender, nondistended. Surgical wounds without bleeding/ drainage/erythema. Extremities: No lower extremity edema. Psych: Alert and oriented. Procedures ERCP on 03/18/2016. Urinary Catheter: No Vascular Central Line Catheter: No A/P Problem List: (1) Choledocholithiasis ICD Code: K80.50 Status: Acute (2) Pancreatitis ICD Code: K85.90 Status: Acute (3) Elevated LFTs ICD Code: R94.5 Status: Resolved (4) Leukocytosis ICD Code: D72.829 Status: Acute Assessment and Plan 1. Post procedure pancreatitis: Resolved. Patient developed pancreatitis following ERCP. Appreciate GI recommendations. Continue pain control. Continue antibiotics, Levaquin and Flagyl. 2. Choledocholithiasis: S/P cholecystectomy, POD #1. Cleared for discharge by general surgery. 3. Leukocytosis: Improving. 4. DVT prophylaxis: SCDs. 5. Fever: Uncertain etiology. Check CBC. Monitor temps. Incentive spirometry. Discharge Planning Plan for discharge home this afternoon if patient remains afebrile. Problem Qualifiers (1) Pancreatitis: Donald Hernandez MD Mar 23, 2016 09:04
[2016-03-23] MEDS ORDERED: METR-1 PO (09:07)
[2016-03-23] MEDS ORDERED: LEVA500T PO (09:07)
--- NOTE | 2016-03-23 09:08 | HHI.DCPOC ---
Discharge Care Plan Diagnosis: (1) Choledocholithiasis (2) Pancreatitis, gallstone (3) Leukocytosis (4) Elevated LFTs (5) Abdominal pain (6) History of smoking (7) Abnormal computerized tomography of biliary tract Goals to Promote Your Health * To prevent worsening of your condition and complications * To maintain your health at the optimal level Directions to Meet Your Goals Take your medications as prescribed Follow your dietary instruction Follow activity as directed Keep your appointments as scheduled Take your immunizations and boosters as scheduled If your symptoms worsen call your PCP, if no PCP go to Urgent Care Center or Emergency Room Smoking is Dangerous to Your Health. Avoid second hand smoke Call the 24-hour hour crisis hotline for domestic abuse at Donald Hernandez MD Mar 23, 2016 09:08
[2016-03-23] MEDS: ACETAMINOPHEN/HYDROcodone 325 MG/5 MG TAB PO PRN ×2 (09:27→14:02)
--- NOTE | 2016-03-23 10:49 | HHI.PR ---
Subjective Subjective Notes Resting in bed Has walked in hallways several times today Had fever last night but feels good today Objective Vitals/I&O Vital Signs Date Time Temp Pulse Resp B/P Pulse Ox O2 Delivery O2 Flow Rate FiO2 03/23/16 07:59 98.7 88 20 102/70 97 03/22/16 12:30 Nasal Cannula 2 03/21/16 08:00 21 Radiology Last Impressions GI Procedure 03/18/16 0000 Signed Impressions: Service Date/Time: February 11:02 - CONCLUSION: ERCP as above. See report by the small boat engineer for a more detailed report. Gilbert Fabian MD Abdomen/Pelvis CT 03/17/16 2255 Signed Impressions: Service Date/Time: Thursday, March 17, 2016 23:30 - CONCLUSION: 4 mm distal common bile duct stone. 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 Osborn Problem Qualifiers (1) Abdominal pain: Qualified Code: R10.84 - Generalized abdominal pain (2) Pancreatitis: Marcella Elizabeth Mar 23, 2016 10:49
[2016-03-23 10:50] LABS: AUTOMATED NEUTROPHIL # 8.4 TH/MM3 (1.8-7.7); BASOPHIL # 0.1 TH/MM3 (0-0.2); BASOPHIL % 0.6 % (0.0-2.0); EOSINOPHIL # 0.1 TH/MM3 (0-0.4); EOSINOPHIL % 0.7 % (0.0-4.0); HEMATOCRIT 38.6 % (39.0-51.0); HEMO FLAGS DIFF FINAL; LYMPH % 15.2 % (9.0-44.0); LYMPHOCYTE # 1.7 TH/MM3 (1.0-4.8); MEAN CELL VOLUME 95.3 FL (80.0-100.0); MEAN CORPUSCULAR HEMOGLOBIN 32.4 PG (27.0-34.0); MONO % 8.6 % (0.0-8.0); NEUT % 74.9 % (16.0-70.0); PLATELET COUNT 228 TH/MM3 (150-450); RED BLOOD COUNT 4.05 MIL/MM3 (4.50-5.90); RED CELL DISTRIBUTION WIDTH 12.6 % (11.6-17.2); WHITE BLOOD COUNT 11.2 TH/MM3 (4.0-11.0)
[2016-03-23 12:00] VITALS: BP 113/69; PULSE 78; RESP 20; TEMP 98.9; O2SAT 96
--- NOTE | 2016-03-25 13:37 | MP ---
cc: RONNIE OSBORN M.D. DATE OF SURGERY 03/22/2016 PREOPERATIVE DIAGNOSIS Cholelithiasis, cholecystitis, post ERCP pancreatitis. POSTOPERATIVE DIAGNOSIS Cholelithiasis, cholecystitis, post ERCP pancreatitis. PROCEDURE Laparoscopic cholecystectomy ANESTHESIA General SURGEON Dr. Osborn INDICATIONS This is a pleasant 36-year gentleman who had a bout of choledocholithiasis. He underwent an ERCP late last week. He unfortunately developed a severe post ERCP pancreatitis. He was watched in the hospital to allow his pancreatitis to resolve. Plans were made for above. PROCEDURE The patient taken to the operating room, placed in supine position. After anesthesia, his abdomen was prepped with Betadine. After the time out was done, he was given preoperative antibiotics and an incision made below the umbilicus. Veress needle was inserted, saline load test was performed. The abdomen was insufflated with 15 mmHg. A cameras was introduced. Two other working ports were placed, one below the xyphoid, one in between two previously placed in the midline avoiding his large tattoo of a skull on his abdomen. The gallbladder can be seen, grasped superiorly and laterally identifying the cystic duct which is somewhat enlarged. This was doubly ligated and transected. The cystic duct was very small. Edematous gallbladder was then teased off the gallbladder bed, placed in an EndoCatch and pulled out through the umbilical incision which must be elongated because of the size of the gallbladder. It was passed off the field. The liver is smooth. The peritoneal surfaces are smooth. No other gross abnormalities seen. We then close the umbilicus at the fascial layer with a 0 Vicryl, skin with 4-0 Vicryl at all three sites. The patient tolerated the procedure well, had no immediate postop complications. DISCUSSION Intraoperative findings were discussed with the on the phone. MD KAREN Landeros/MARKY /11:31 AM /1:24 PM
--- NOTE | 2016-03-29 14:59 | HHI.DS ---
Discharge Summary Admission Date Mar 18, 2016 at 00:31 Discharge Date: Mar 23, 2016 Admitting Diagnosis choledocholithiasis (1) Choledocholithiasis ICD Code: K80.50 (2) Pancreatitis ICD Code: K85.90 (3) Elevated LFTs ICD Code: R94.5 (4) Leukocytosis ICD Code: D72.829 Procedures ERCP on 03/18/2016. 03/22/16 laparoscopic Cholecystectomy Brief History - From Admission History taken from patient and ED physician. 36 y/o male with no medical history presented with complaints of sharp mid epigastric pain for 2 days with associated nausea and vomiting that began yesterday. He denies any chest pain, sob, fever or chills. He does not see a PCP because he states he has never been sick. Imaging Last Impressions GI Procedure 03/18/16 0000 Signed Impressions: Service Date/Time: February 11:02 - CONCLUSION: ERCP as above. See report by the aprn for a more detailed report. Gilbert Fabian MD Abdomen/Pelvis CT 03/17/16 2255 Signed Impressions: Service Date/Time: Thursday, March 17, 2016 23:30 - CONCLUSION: 4 mm distal common bile duct stone. 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 Heart: Regular rate and rhythm. No murmur. Lungs: Clear to auscultation bilaterally. No wheezes, rales, or rhonchi. Breathing is nonlabored. Abdomen: Soft, nontender, nondistended. Surgical wounds without bleeding/ drainage/erythema. Extremities: No lower extremity edema. Psych: Alert and oriented. Hospital Course The patient presented with abdominal pain and was found on imaging to have choledocholithiasis. GI was consulted. ERCP was done. Patient developed an cryptitis. He was continued on IV fluids and pain medications. Gen. surgery was consulted. The patient improved clinically and pancreatitis resolved. General surgery performed laparoscopic cholecystectomy without complications. Patient's diet was advanced and he tolerated it well. He was felt to be stable for discharge home. He was cleared for discharge by general surgery and GI. Pt Condition on Discharge: Stable Discharge Disposition: Discharge Home Discharge Time: > 30 minutes Discharge Instructions DIET: Follow Instructions for: As Tolerated, No Restrictions Activities you can perform: Regular-No Restrictions Follow up Referrals: Gastroenterology - 1 Week with Brianna Caba MD PCP Follow-up - 2 Weeks Surgical - 10 Days with Mega Osborn MD New Medications: Hydrocodone-Acetaminophen ([place]) 5-325 mg Tab 1 TAB PO Q6H PRN PAIN #30 Ref 0 TAB Levofloxacin (Levaquin) 500 Mg Tab 500 MG PO DAILY Infection #3 Ref 0 TAB Metronidazole (Flagyl) 500 Mg Tab 500 MG PO TID Infection #9 Ref 0 TAB Donald Hernandez MD Mar 29, 2016 14:59
== END 2016-03-23 15:08 | disposition home or self-care (01) | DRG 417 ==
LOC: PHED 18:15 → PHEDA 03-18 00:29 → OBSVTOIN 03-18 00:31 → NEPHCDU 03-18 02:15 → HOCA 03-18 13:33
PROVIDERS: ADMIT Family Medicine; ATTEND Family Medicine
PROC: 0FC98ZZ Extirpation of Matter from Common Bile Duct, Via Natural or Artificial Opening Endoscopic (ICD-10-PCS; 2016-03-18)
PROC: 0FT44ZZ Resection of Gallbladder, Percutaneous Endoscopic Approach (ICD-10-PCS; principal; 2016-03-22 09:47)
DX: K80.44 Calculus of bile duct with chronic cholecystitis without obstruction (principal); K85.10 Biliary acute pancreatitis without necrosis or infection; Y84.8 Other medical procedures as the cause of abnormal reaction of the patient, or of later complication, without mention of misadventure at the time of the procedure; F17.210 Nicotine dependence, cigarettes, uncomplicated
CPT/HCPCS: 74177; 74330; 80053; 81001; 82550; 82552; 83690; 84484; 85025; 85610; 85730; 88304; 93005; 96361; 96365; 96375; C1769; C9113; J0131; J1170; J1610; J1956; J2250; J2270; J2405; J2710; J3010; J7030; Q9967

== ENCOUNTER 2016-03-25 16:19 | Emergency (ER) | payer MEDICAID ==
[~2016-03-25] VITALS: Ht 177.8 cm; Wt 79.0 kg
[~2016-03-25 16:19] MED LIST changes: +LEVA500T PO; +METR-1 PO; +NORC5TAB PO; -OMEP20TA PO; -ONDA4 PO; -RANI150T PO
[2016-03-25 16:21] VITALS: BP 119/72; PULSE 95; RESP 12; O2SAT 93
[2016-03-25 17:03] VITALS: BP 122/69; PULSE 91; RESP 20; TEMP 98.8; O2SAT 95
--- NOTE | 2016-03-25 18:27 | PD ---
HPI . Fever Chief Complaint: Fever Time Seen by Provider: 18:00 Travel History International Travel<30 days: No Contact w/Intl Traveler<30days: No Traveled to known affect area: No History of Present Illness HPI Patient presents complaining with a postop fever. He is 4 days status post cholecystectomy. He states that he had the onset of fever last night. MAXIMUM TEMPERATURE has been 100.8. He further states that his urine is dark. He denies any respiratory difficulty. He states that his appetite had been okay until today but that he has not had much of an appetite today. He denies any nausea, vomiting or diarrhea. PFSH Past Medical History Cancer: No Cardiovascular Problems: No Diminished Hearing: No Endocrine: No Gastrointestinal Disorders: Yes (current c/o epigastric pain) GERD: Yes Genitourinary: No Immune Disorder: No Musculoskeletal: No Neurologic: No Psychiatric: No Reproductive: No Respiratory: No Past Surgical History Cholecystectomy: Yes Other Surgery: No Social History Alcohol Use: No Tobacco Use: Yes (1 PPD) Substance Use: No Allergies-Medications (Allergen,Severity, Reaction): Coded Allergies: Penicillin (Verified Allergy, Severe, HIVES, 03/25/16) Reported Meds & Prescriptions Reported Meds & Active Scripts Active Flagyl (Metronidazole) 500 Mg Tab 500 Mg PO TID Levaquin (Levofloxacin) 500 Mg Tab 500 Mg PO DAILY Mcdaniel (Hydrocodone-Acetaminophen) 5-325 mg Tab 1 Tab PO Q6H PRN Review of Systems Except as stated in HPI: all other systems reviewed are Neg General / Constitutional: Positive: Fever Genitourinary: Positive: Other (dark urine) Physical Exam Narrative GENERAL: This is a healthy-appearing young man in no acute distress. SKIN: Warm and dry. HEAD: Atraumatic. Normocephalic. EYES: Pupils equal and round. Sclerae appear anicteric. ENT: No nasal bleeding or discharge. Mucous membranes pink and moist. NECK: Trachea midline. Neck is supple. CARDIOVASCULAR: Regular rate and rhythm. Heart sounds are normal. RESPIRATORY: No accessory muscle use. Lungs are clear with full air movement throughout. GASTROINTESTINAL: Abdomen soft, non-tender, nondistended. He does have fresh laparotomy scars. There is no drainage or erythema around the wounds. MUSCULOSKELETAL: No obvious deformities. No edema. NEUROLOGICAL: Awake and alert. No obvious cranial nerve deficits. Motor grossly within normal limits. Normal speech. PSYCHIATRIC: Appropriate mood and affect; insight and judgment normal. Data Data Last Documented VS Vital Signs Date Time Temp Pulse Resp B/P Pulse Ox O2 Delivery O2 Flow Rate FiO2 03/25/16 19:49 89 18 107/70 96 Room Air 03/25/16 17:03 98.8 Orders Complete Blood Count With Diff (03/25/16 18:24) Comprehensive Metabolic Panel (03/25/16 18:24) Lactic Acid Sepsis Protocol (03/25/16 18:24) Urinalysis - C+S If Indicated (03/25/16 18:24) Blood Culture (03/25/16 18:24) Chest, Single Ap (03/25/16 18:24) Blood Glucose (03/25/16 18:24) Ecg Monitoring (03/25/16 18:24) Iv Access Insert/Monitor (03/25/16 18:24) Oximetry (03/25/16 18:24) Oxygen Administration (03/25/16 18:24) Labs Laboratory Tests Test 03/25/16 18:40 White Blood Count 11.5 TH/MM3 Red Blood Count 4.37 MIL/MM3 Hemoglobin 14.2 GM/DL Hematocrit 41.7 % Mean Corpuscular Volume 95.4 FL Mean Corpuscular Hemoglobin 32.4 PG Mean Corpuscular Hemoglobin 34.0 % Concent Red Cell Distribution Width 12.7 % Platelet Count 341 TH/MM3 Mean Platelet Volume 8.3 FL Neutrophils (%) (Auto) 68.6 % Lymphocytes (%) (Auto) 19.2 % Monocytes (%) (Auto) 10.1 % Eosinophils (%) (Auto) 1.6 % Basophils (%) (Auto) 0.5 % Neutrophils # (Auto) 7.9 TH/MM3 Lymphocytes # (Auto) 2.2 TH/MM3 Monocytes # (Auto) 1.2 TH/MM3 Eosinophils # (Auto) 0.2 TH/MM3 Basophils # (Auto) 0.1 TH/MM3 CBC Comment DIFF FINAL Differential Comment Urine Color LIGHT-RED Urine Turbidity CLOUDY Urine pH 7.0 Urine Specific [place] 1.017 Urine Protein NEG mg/dL Urine Glucose (UA) NEG mg/dL Urine Ketones NEG mg/dL Urine Occult Blood NEG Urine Nitrite NEG Urine Bilirubin NEG Urine Urobilinogen 2.0 MG/DL Urine Leukocyte Esterase NEG Urine WBC LESS THAN 1 /hpf Urine Amorphous Sediment RARE Urine Mucus FEW /lpf Microscopic Urinalysis Comment CATH-CULT NOT IND Sodium Level 138 MEQ/L Potassium Level 3.8 MEQ/L Chloride Level 102 MEQ/L Carbon Dioxide Level 29.5 MEQ/L Anion Gap 7 MEQ/L Blood Urea Nitrogen 11 MG/DL Creatinine 0.90 MG/DL Estimat Glomerular Filtration 95 ML/MIN Rate Random Glucose 99 MG/DL Lactic Acid Level 0.8 mmol/L Calcium Level 8.1 MG/DL Total Bilirubin 0.3 MG/DL Aspartate Amino Transf 40 U/L (AST/SGOT) Alanine Aminotransferase 58 U/L (ALT/SGPT) Alkaline Phosphatase 93 U/L Total Protein 6.7 GM/DL Albumin 2.8 GM/DL [facility] Medical Decision Making Medical Screen Exam Complete: Yes Emergency Medical Condition: Yes Differential Diagnosis Differential diagnosis of fever includes but is not limited to viral illness, strep throat, otitis media, pneumonia, sepsis, UTI Narrative Course Patient presents for evaluation of a postoperative fever. Chest x-ray is negative to the radiologist's interpretation. Chest x-ray was independently viewed by me. His white blood count is 11.5. UA is negative. His AST is 40. Other liver function studies are normal. His lactic acid is normal. No obvious etiology for fever has been discovered. He will be discharged with instructions to continue his incentive spirometer. He should follow up with surgery as previously scheduled. Diagnosis Primary Impression: Postoperative fever Patient Instructions: Fever in Adults (ED), General Instructions Additional Instructions: Drink lots of fluids. Disposition: 01 DISCHARGE HOME Condition: Stable Sheri Billings MD Mar 25, 2016 18:27
[2016-03-25 18:57] LABS: AUTOMATED NEUTROPHIL # 7.9 TH/MM3 (1.8-7.7); BASOPHIL # 0.1 TH/MM3 (0-0.2); BASOPHIL % 0.5 % (0.0-2.0); EOSINOPHIL # 0.2 TH/MM3 (0-0.4); EOSINOPHIL % 1.6 % (0.0-4.0); HEMATOCRIT 41.7 % (39.0-51.0); HEMO FLAGS DIFF FINAL; LYMPH % 19.2 % (9.0-44.0); LYMPHOCYTE # 2.2 TH/MM3 (1.0-4.8); MEAN CELL VOLUME 95.4 FL (80.0-100.0); MEAN CORPUSCULAR HEMOGLOBIN 32.4 PG (27.0-34.0); MONO % 10.1 % (0.0-8.0); NEUT % 68.6 % (16.0-70.0); PLATELET COUNT 341 TH/MM3 (150-450); RED BLOOD COUNT 4.37 MIL/MM3 (4.50-5.90); RED CELL DISTRIBUTION WIDTH 12.7 % (11.6-17.2); WHITE BLOOD COUNT 11.5 TH/MM3 (4.0-11.0)
[2016-03-25 19:02] LABS: BLOOD, URINE NEG (NEG); GLUCOSE,URINE NEG (NEG); KETONE, URINE NEG (NEG); MUCUS URINE FEW /lpf (OCC); NITRITE,URINE NEG (NEG)
[2016-03-25 19:03] LABS: COMMENT (UR) CATH-CULT NOT IND; CULTURE IF INDICATED CATH CULTURE NOT IND; URINE COLOR LIGHT-RED (YELLW/STRAW)
--- NOTE | 2016-03-25 19:14 | RADRPT ---
EXAM DATE/TIME: 03/25/2016 18:43 [place] COMPARISON: No previous studies available for comparison. INDICATIONS : Fever, Chest Pain. MEDICAL HISTORY : Hypertension. SURGICAL HISTORY : None. ENCOUNTER: Initial ACUITY: 4 - 6 days PAIN SCORE: 0/10 LOCATION: chest FINDINGS: A single view of the chest demonstrates the lungs to be symmetrically aerated without evidence of mas s, infiltrate or effusion. The cardiomediastinal contours are unremarkable. Osseous structures are intact. CONCLUSION: No acute disease. Sebas Cowart MD on March 25, 2016 at 19:13 Board Certified Radiologist. This report was verified electronically.
[2016-03-25 19:38] LABS: ANION GAP 7 MEQ/L (5-15); AST (GOT) 40 U/L (15-37); BICARBONATE 29.5 MEQ/L (21.0-32.0); BLOOD UREA NITROGEN 11 MG/DL (7-18); CHLORIDE 102 MEQ/L (98-107); GLOMERULAR FILTRATION RATE 95 ML/MIN (>89); POTASSIUM 3.8 MEQ/L (3.5-5.1); SODIUM (NA) 138 MEQ/L (136-145)
[2016-03-25 19:41] LABS: ALKALINE PHOSPHATASE 93 U/L (45-117); ALT (GPT) 58 U/L (12-78); TOTAL BILIRUBIN ADULT 0.3 MG/DL (0.2-1.0)
[2016-03-25 19:49] VITALS: BP 107/70; PULSE 89; RESP 18; O2SAT 96
== END 2016-03-25 20:30 | disposition home or self-care (01) ==
LOC: NEPA 16:19
DX: R50.82 Postprocedural fever (principal); F17.210 Nicotine dependence, cigarettes, uncomplicated; Z90.49 Acquired absence of other specified parts of digestive tract; R07.9 Chest pain, unspecified; I10 Essential (primary) hypertension
CPT/HCPCS: 71010; 80053; 81001; 83605; 85025; 87040; 99284

== ENCOUNTER 2016-10-28 17:17 | Inpatient (IN) | payer MEDICAID ==
[2016-10-28] MEDS ORDERED: IOHEXOL 350 MG/ML 10 ML VIAL (for RAD DIAG) IVCONTRAST ONE (17:18)
[2016-10-28 17:19] VITALS: BP 145/98; PULSE 106; RESP 24; TEMP 99.9; O2SAT 96
--- NOTE | 2016-10-28 17:25 | PD ---
Physical Exam Time Seen by Provider: 17:22 Narrative 36yo M c/o left facial swelling that he woke up w/ this morning after breaking a tooth while eating lunch yesterday. Saw dentist this morning and was given Clindamycin; has taken two doses and facial swelling much worse. Subjective fever earlier. Denies vomiting. Having difficulty swallowing. Denies airway edema. Patient seen in triage. VS reviewed. Awaiting bed placement. Data Data Last Documented VS Vital Signs Date Time Temp Pulse Resp B/P (MAP) Pulse Ox O2 Delivery O2 Flow Rate FiO2 10/28/16 17:19 99.9 106 24 145/98 (114) 96 Room Air MDM Supervised Visit with LEXA: Octavia Mckeon Oct 28, 2016 17:25
[2016-10-28] MEDS ORDERED: IBUP800T23 PO (18:17)
[2016-10-28] MEDS ORDERED: CLIN1CAP6 PO (18:17)
[2016-10-28] MEDS ORDERED: SODIUM CHLOR 0.9% 1000 ML INJ 1,000 ML IV SCH (18:18)
--- NOTE | 2016-10-28 18:27 | PD ---
HPI Chief Complaint: Oral / Dental Pain or Problem Time Seen by Provider: 18:14 Travel History International Travel<30 days: No Contact w/Intl Traveler<30days: No Traveled to known affect area: No History of Present Illness HPI Patient comes in complaining of left-sided facial pain that began around 4:00 this morning. Patient yesterday he had a tooth break on him while he was eating lunch. He states he went to his dentist today and started on clindamycin and ibuprofen and was told to come to the emergency department symptoms get worse. Patient states he feels the swelling is getting worse. Patient denies any difficulty swallowing started to feel like the swelling is getting close to his throat. Denies any fevers, nausea, vomiting, or previous episodes like this. Pain is throbbing and pressure-like in nature and radiates to his left mandible. PFSH Past Medical History Cancer: No Cardiovascular Problems: No Diabetes: No Diminished Hearing: No Endocrine: No Gastrointestinal Disorders: Yes GERD: Yes Genitourinary: No Immune Disorder: No Musculoskeletal: No Neurologic: No Psychiatric: No Reproductive: No Respiratory: No Tetanus Vaccination: < 5 Years Influenza Vaccination: No Past Surgical History Cholecystectomy: Yes Other Surgery: No Social History Alcohol Use: No Tobacco Use: Yes (1 PPD) Substance Use: No Allergies-Medications (Allergen,Severity, Reaction): Coded Allergies: penicillin G (Unverified Allergy, Severe, HIVES, 10/28/16) Reported Meds & Prescriptions Reported Meds & Active Scripts Active Reported Ibuprofen 800 Mg Tab 800 Mg PO Q6HR PRN Clindamycin (Clindamycin HCl) 300 Mg Cap 300 Mg PO TID Review of Systems Except as stated in HPI: all other systems reviewed are Neg Physical Exam Narrative GENERAL: Well-developed, overly nourished, in no acute distress, and non-ill appearing. SKIN: Focused skin assessment warm and dry. HEAD: Atraumatic. Normocephalic. EYES: Pupils equal and round. EOMI. No scleral icterus. No injection or drainage. ENT: No nasal bleeding or discharge. Mucous membranes pink and moist. Poor dentition with no visible or palpable abscess. There is soft tissue swelling of the left lower mandible. Floor of the mouth, submandibular, and submental are all soft palpation. NECK: Trachea midline. No cervical lymphadenopathy. Supple. No nuclear rigidity. CARDIOVASCULAR: Regular rate and rhythm. No murmur appreciated. RESPIRATORY: No accessory muscle use. No respiratory distress. Clear to auscultation. Breath sounds equal bilaterally. MUSCULOSKELETAL: No obvious deformities. No clubbing. No cyanosis. No edema. Full range of motion. NEUROLOGICAL: Awake and alert. No obvious cranial nerve deficits. Motor grossly within normal limits. Normal speech. PSYCHIATRIC: Appropriate mood and affect; insight and judgment normal. Data Data Last Documented VS Vital Signs Date Time Temp Pulse Resp B/P (MAP) Pulse Ox O2 Delivery O2 Flow Rate FiO2 10/28/16 19:32 109 16 96 Room Air 10/28/16 17:19 99.9 Orders Orders Basic Metabolic Panel (Bmp) (10/28/16 17:44) Complete Blood Count With Diff (10/28/16 17:44) Iv Access Insert/Monitor (10/28/16 17:44) Prothrombin Time / Inr (Pt) (10/28/16 18:18) Act Partial Throm Time (Ptt) (10/28/16 18:18) Ecg Monitoring (10/28/16 18:18) Oximetry (10/28/16 18:18) Morphine Inj (Morphine Inj) (10/28/16 18:30) Ondansetron Inj (Zofran Inj) (10/28/16 18:30) Sodium Chlor 0.9% 1000 Ml Inj (Ns 1000 M (10/28/16 18:18) Sodium Chloride 0.9% Flush (Ns Flush) (10/28/16 18:30) Clindamycin Inj (Cleocin Inj) (10/28/16 18:30) Dexamethasone Inj (Decadron Inj) (10/28/16 18:30) Ct Soft Tiss Neck W Iv Cont (10/28/16 ) Iohexol 350 Inj (Omnipaque 350 Inj) (10/28/16 17:18) Admit To Inpatient (10/28/16 ) Vital Signs (Adult) Q4H (10/28/16 20:54) Activity Oob With Assistance (10/28/16 20:54) Photographer Helper / Telemetry .CONTINUOUS (10/28/16 20:54) Diet Heart Healthy (10/29/16 Breakfast) Sodium Chloride 0.9% Flush (Ns Flush) (10/28/16 21:00) Sodium Chloride 0.9% Flush (Ns Flush) (10/28/16 21:00) Basic Metabolic Panel (Bmp) (10/29/16 06:00) Complete Blood Count With Diff (10/29/16 06:00) Naloxone Inj (Narcan Inj) (10/28/16 21:00) Inpatient Certification (10/28/16 ) Clindamycin Inj (Cleocin Inj) (10/29/16 02:00) Admit Order (Ed Use Only) (10/28/16 20:57) Morphine Inj (Morphine Inj) (10/28/16 21:00) Labs Laboratory Tests Test 10/28/16 18:05 10/28/16 18:25 Prothrombin Time 11.2 SEC Prothromb Time International Ratio 1.0 RATIO Activated Partial Thromboplast Time 27.6 SEC White Blood Count 17.1 TH/MM3 Red Blood Count 5.52 MIL/MM3 Hemoglobin 18.3 GM/DL Hematocrit 53.1 % Mean Corpuscular Volume 96.2 FL Mean Corpuscular Hemoglobin 33.1 PG Mean Corpuscular Hemoglobin Concent 34.4 % Red Cell Distribution Width 13.0 % Platelet Count 254 TH/MM3 Mean Platelet Volume 8.4 FL Neutrophils (%) (Auto) 70.7 % Lymphocytes (%) (Auto) 17.8 % Monocytes (%) (Auto) 10.5 % Eosinophils (%) (Auto) 0.7 % Basophils (%) (Auto) 0.3 % Neutrophils # (Auto) 12.1 TH/MM3 Lymphocytes # (Auto) 3.0 TH/MM3 Monocytes # (Auto) 1.8 TH/MM3 Eosinophils # (Auto) 0.1 TH/MM3 Basophils # (Auto) 0.1 TH/MM3 CBC Comment DIFF FINAL Differential Comment Blood Urea Nitrogen 7 MG/DL Creatinine 1.00 MG/DL Random Glucose 93 MG/DL Calcium Level 9.3 MG/DL Sodium Level 137 MEQ/L Potassium Level 3.5 MEQ/L Chloride Level 102 MEQ/L Carbon Dioxide Level 25.4 MEQ/L Anion Gap 10 MEQ/L Estimat Glomerular Filtration Rate 85 ML/MIN [facility] Medical Decision Making Medical Screen Exam Complete: Yes Emergency Medical Condition: Yes Interpretation(s) CT neck soft tissue her mother radiologist shows: Soft-tissue swelling in the left side of the face and neck region consistent with cellulitis. There does appear to be a more focal 3.3 cm area of low density in the anterior left lateral aspect of the lower face adjacent to the mandible which may be an early abscess forming. A well formed circumferential capsule is not seen at this time. Differential Diagnosis Lupillo angina, dental abscess, dental infection, facial cellulitis, other Narrative Course Patient seen and examined. He slept for radiological studies were obtained and reviewed. Patient started on IV clindamycin secondary to have a penicillin allergy. Patient was given morphine for pain and Zofran for nausea. Discussed patient with Dr. Escobedo, who is in agreement with plan of care and disposition. Discussed all findings and plan of care with patient, who is agreeable for admission. All questions were answered. Patient remain stable throughout ED course. Discussed patient with hospitalist who is agreeable to admit the patient. Physician Communication Physician Communication [id number] Leon, who is agreeable to admit the patient. Diagnosis Primary Impression: Facial cellulitis Admitting Information Admitting Physician Requests: Admit Condition: Stable Samy Green Oct 28, 2016 18:27
[2016-10-28] MEDS ORDERED: CLINDAMYCIN INJ 600 MG in SODIUM CHLORIDE 0.9% INJ 100 ML IV ONE (18:30)
[2016-10-28] MEDS ORDERED: MORPHINE SULFATE 4 MG/ML INJ IV PUSH ONE (18:30)
[2016-10-28] MEDS ORDERED: ONDANSETRON HCL 4 MG/2 ML VIAL IVP ONE (18:30)
[2016-10-28] MEDS ORDERED: DEXAMETHASONE SOD PHOS 20 MG/5 ML VIAL IV PUSH ONE (18:30)
[2016-10-28] MEDS ORDERED: SODIUM CHLORIDE 0.9% FLUSH 10 ML FLUSH IV FLUSH PRN ×2 (18:30→21:00)
[2016-10-28 19:00] LABS: APTT (PATIENT) 27.6 SEC (24.3-30.1); PROTHROMBIN TIME - PATIENT 11.2 SEC (9.8-11.6)
[2016-10-28 19:32] VITALS: PULSE 109; RESP 16; O2SAT 96
[2016-10-28 19:40] LABS: AUTOMATED NEUTROPHIL # 12.1 TH/MM3 (1.8-7.7); BASOPHIL # 0.1 TH/MM3 (0-0.2); BASOPHIL % 0.3 % (0.0-2.0); EOSINOPHIL # 0.1 TH/MM3 (0-0.4); EOSINOPHIL % 0.7 % (0.0-4.0); HEMATOCRIT 53.1 % (39.0-51.0); HEMO FLAGS DIFF FINAL; LYMPH % 17.8 % (9.0-44.0); MEAN CELL VOLUME 96.2 FL (80.0-100.0); MEAN CORPUSCULAR HEMOGLOBIN 33.1 PG (27.0-34.0); MEAN CORPUSCULAR HGB CONC 34.4 % (32.0-36.0); MONO % 10.5 % (0.0-8.0); NEUT % 70.7 % (16.0-70.0); PLATELET COUNT 254 TH/MM3 (150-450); RED BLOOD COUNT 5.52 MIL/MM3 (4.50-5.90); WHITE BLOOD COUNT 17.1 TH/MM3 (4.0-11.0)
[2016-10-28 19:50] LABS: BICARBONATE 25.4 MEQ/L (21.0-32.0); POTASSIUM 3.5 MEQ/L (3.5-5.1)
--- NOTE | 2016-10-28 20:37 | RADRPT ---
EXAM DATE/TIME: 10/28/2016 19:19 [place] COMPARISON: No previous studies available for comparison. INDICATIONS : Left sided facial swelling. Possible abscess. IV CONTRAST: 65 cc Omnipaque 350 (iohexol) IV RADIATION DOSE: 19.68 CTDIvol (mGy) MEDICAL HISTORY : None SURGICAL HISTORY : None. ENCOUNTER: Initial ACUITY: 1 day PAIN SCALE: 9/10 LOCATION: Left facial TECHNIQUE: Volumetric scanning of the neck was performed. Using automated exposure control and a djustment of the mA and/or kV according to patient size, radiation dose was kept as low as reasonably achievable to obtain optimal diagnostic quality images. DICOM format image data is available elect ronically for review and comparison. FINDINGS: There is very prominent induration in the subcutaneous fat over the left side of the f rowena and neck region. There does appear to be an area of more focal soft tissue swelling seen adjacen t to the anterior aspect of the left side of the mandible measuring approximately 3.4 x 1.9 cm. Thi s may be early formation of an abscess. Portions of the margin of this are well defined but other por tions are not. A well defined fully circumferential capsule is not seen. The bony structures appear grossly intact. There are mildly prominent lymph nodes seen in the left side of the neck. The subm andibular glands and parotid glands are normal. The nasopharynx, oropharynx, and hypopharynx are anne ssly intact. There is enlargement of the tonsils especially on the left. The glottic structures are intact. The thyroid gland is normal. There is a small area of focal mucosal disease at the left max illary sinus. CONCLUSION: Soft-tissue swelling in the left side of the face and neck region consistent with les lulitis. There does appear to be a more focal 3.3 cm area of low density in the anterior left latera l aspect of the lower face adjacent to the mandible which may be an early abscess forming. A well fo rmed circumferential capsule is not seen at this time. Sebas Beal MD on October 28, 2016 at 20:27 Board Certified Radiologist. This report was verified electronically.
[2016-10-28] MEDS ORDERED: MORPHINE SULFATE 4 MG/ML INJ IV PUSH PRN (21:00)
[2016-10-28] MEDS ORDERED: NALOXONE HCL 0.4 MG/ML AMP IV PRN (21:00)
[2016-10-28] MEDS: SODIUM CHLORIDE 0.9% FLUSH 10 ML FLUSH IV FLUSH SCH (21:26)
--- NOTE | 2016-10-28 21:53 | HHI.HP ---
HPI Service [facility] Primary Care Physician No Primary Care Physician Admission Diagnosis facial cellulitis Diagnoses: Chief Complaint: Left facial pain and swelling Travel History International Travel<30 Days: No Contact w/Intl Traveler <30 Da: No Traveled to Known Affected Are: No History of Present Illness 36-year-old male with no medical history presented to the ED with increased left -sided facial pain, patient states yesterday he was eating lunch and he cracked a tooth on some tracy. He went to the dentist and was given antibiotics clindamycin and ibuprofen for pain and was instructed to come to the ED if his pain worsened. He describes the pain as a throbbing pressure pain 10/10 to the left side of his face with swelling extends down his neck, he states the morphine does not usually work for him, he has taken Dilaudid in the past with surgeries and had relief. The plan is to return to the dentist next Tuesday to have his tooth pulled along with one other one. Upon examination patient does appear to have poor dental care with many rotten teeth. He denies any chest pain, shortness of breath, fevers or chills Review of Systems Except as stated in HPI: all other systems reviewed are Neg Past Family Social History Past Medical History Patient denies any medical history Past Surgical History Cholecystectomy Reported Medications Reported Meds & Active Scripts Active Reported Ibuprofen 800 Mg Tab 800 Mg PO Q6HR PRN Clindamycin (Clindamycin HCl) 300 Mg Cap 300 Mg PO TID Allergies: Coded Allergies: penicillin G (Unverified Allergy, Severe, HIVES, 10/28/16) Active Ordered Medications Current Medications Medications (Trade) Dose Ordered Sig/Kat Route Start Time Stop Time Status Last Admin (NS Flush) 2 ml UNSCH PRN IV FLUSH 10/28/16 18:30 (NS Flush) 2 ml UNSCH PRN IV FLUSH 10/28/16 21:00 (NS Flush) 2 ml BID IV FLUSH 10/28/16 21:00 10/28/16 21:26 (Narcan Inj) 0.4 mg UNSCH PRN IV 10/28/16 21:00 Clindamycin Phosphate 900 mg/ Sodium Chloride 106 ml @ 212 mls/hr Q6H IV 10/29/16 02:00 (Morphine Inj) 2 mg Q3H PRN IV PUSH 10/28/16 21:00 Family History Mom: Breast cancer Social History Tobacco use: Half pack per day Alcohol use: Denies Illicit drug use: Denies Physical Exam Vital Signs Vital Signs Date Time Temp Pulse Resp B/P (MAP) Pulse Ox O2 Delivery O2 Flow Rate FiO2 10/28/16 19:32 109 16 96 Room Air 10/28/16 18:12 99 18 10/28/16 17:19 99.9 106 24 145/98 (114) 96 Room Air Physical Exam GENERAL: This is a well-nourished, well-developed patient, in no apparent distress. SKIN: Left facial swelling HEAD: Atraumatic. Normocephalic. EYES: Pupils equal round and reactive. Extraocular motions intact. Mouth: First molar on the left side cracked ENT: Nose without bleeding, purulent drainage or septal hematoma. Airway patent. NECK: Trachea midline. No JVD or lymphadenopathy. CARDIOVASCULAR: Regular rate and rhythm without murmurs, gallops, or rubs. RESPIRATORY: Clear to auscultation. Breath sounds equal bilaterally. No wheezes , rales, or rhonchi. GASTROINTESTINAL: Abdomen soft, non-tender, nondistended. No hepato-splenomegaly , or palpable masses. No guarding. MUSCULOSKELETAL: Extremities without clubbing, cyanosis, or edema. No joint tenderness, effusion, or edema noted. No calf tenderness. NEUROLOGICAL: Awake and alert. Motor and sensory grossly within normal limits.. Normal speech. Left jaw pain Laboratory Laboratory Tests Test 10/28/16 18:05 10/28/16 18:25 Prothrombin Time 11.2 Prothromb Time International Ratio 1.0 Activated Partial Thromboplast Time 27.6 White Blood Count 17.1 Red Blood Count 5.52 Hemoglobin 18.3 Hematocrit 53.1 Mean Corpuscular Volume 96.2 Mean Corpuscular Hemoglobin 33.1 Mean Corpuscular Hemoglobin Concent 34.4 Red Cell Distribution Width 13.0 Platelet Count 254 Mean Platelet Volume 8.4 Neutrophils (%) (Auto) 70.7 Lymphocytes (%) (Auto) 17.8 Monocytes (%) (Auto) 10.5 Eosinophils (%) (Auto) 0.7 Basophils (%) (Auto) 0.3 Neutrophils # (Auto) 12.1 Lymphocytes # (Auto) 3.0 Monocytes # (Auto) 1.8 Eosinophils # (Auto) 0.1 Basophils # (Auto) 0.1 CBC Comment DIFF FINAL Differential Comment Blood Urea Nitrogen 7 Creatinine 1.00 Random Glucose 93 Calcium Level 9.3 Sodium Level 137 Potassium Level 3.5 Chloride Level 102 Carbon Dioxide Level 25.4 Anion Gap 10 Estimat Glomerular Filtration Rate 85 Result Diagram: 10/28/16 1825 10/28/16 1825 Imaging Last Impressions Neck CT 10/28/16 0000 Signed Impressions: Service Date/Time: , October 28, 2016 19:19 - CONCLUSION: Soft-tissue swelling in the left side of the face and neck region consistent with cellulitis. There does appear to be a more focal 3.3 cm area of low density in the anterior left lateral aspect of the lower face adjacent to the mandible which may be an early abscess forming. A well formed circumferential capsule is not seen at this time. Sebas Beal MD Caprini VTE Risk Assessment Caprini VTE Risk Assessment: No/Low Risk (score <= 1) Caprini Risk Assessment Model Point Value = 1 Point Value = 2 Point Value = 3 Point Value = 5 Age 41-60 Minor surgery BMI > 25 kg/m2 Swollen legs Varicose veins or History of unexplained or recurrent spontaneous Oral contraceptives or hormone replacement Sepsis (< 1 month) Serious lung disease, including pneumonia (< 1 month) Abnormal pulmonary function Acute myocardial infarction Congestive heart failure (< 1 month) History of inflammatory bowel disease Medical patient at bed rest Age 61-74 Arthroscopic surgery Major open surgery (> 45 min) Laparoscopic surgery (> 45 min) Malignancy Confined to bed (> 72 hours) Immobilizing plaster cast Central venous access Age >= 75 History of VTE Family history of VTE Factor V Leiden Prothrombin [id number] Lupus anticoagulant Anticardiolipin antibodies Elevated serum homocysteine Heparin-induced thrombocytopenia Other congenital or acquired thrombophilia Stroke (< 1 month) Elective arthroplasty Hip, pelvis, or leg fracture Acute spinal cord injury (< 1 month) Prophylaxis Regimen Total Risk Factor Score Risk Level Prophylaxis Regimen 0-1 Low Early ambulation 2 Moderate Order ONE of the following: *Sequential Compression Device (SCD) *Heparin 5000 units SQ BID 3-4 Higher Order ONE of the following medications: *Heparin 5000 units SQ TID *Enoxaparin/Lovenox 40 mg SQ daily (WT < 150 kg, CrCl > 30 mL/min) *Enoxaparin/Lovenox 30 mg SQ daily (WT < 150 kg, CrCl > 10-29 mL/min) *Enoxaparin/Lovenox 30 mg SQ BID (WT < 150 kg, CrCl > 30 mL/min) AND/OR *Sequential Compression Device (SCD) 5 or more Highest Order ONE of the following medications: *Heparin 5000 units SQ TID (Preferred with Epidurals) *Enoxaparin/Lovenox 40 mg SQ daily (WT < 150 kg, CrCl > 30 mL/min) *Enoxaparin/Lovenox 30 mg SQ daily (WT < 150 kg, CrCl > 10-29 mL/min) *Enoxaparin/Lovenox 30 mg SQ BID (WT < 150 kg, CrCl > 30 mL/min) AND *Sequential Compression Device (SCD) Assessment and Plan Problem List: (1) Cellulitis and abscess of face ICD Code: L03.211 - Cellulitis of face; L02.01 - Cutaneous abscess of face Status: Acute Assessment and Plan 36-year-old male with no medical history presented to the ED with increased left -sided facial pain, patient states yesterday he was eating lunch and he cracked a tooth on some tracy. Cellulitis and abscess of face, failed outpatient therapy CT of the neck reviewed and showed Soft-tissue swelling in the left side of the face and neck region consistent with cellulitis. There does appear to be a more focal 3.3 cm area of low density in the anterior left lateral aspect of the lower face adjacent to the mandible which may be an early abscess forming. -IV antibiotics clindamycin -Pain management changed to IV Dilaudid -IV Decadron for inflammation -If no improvement shown will consult oral surgeon, otherwise patient can keep outpatient appointment Leukocytosis, wbc 17.1, suspected due to cellulitis of the face -Cont antibiotics as above -Trend CBC in AM DVT prophylaxis, low risk: SCDs Code Status Full Discussed Condition With Patient Physician Certification 2 Midnight Certification Type: Admission for Inpatient Services Order for Inpatient Services The services are ordered in accordance with Medicare regulations or non- Medicare payer requirements, as applicable. In the case of services not specified as inpatient-only, they are appropriately provided as inpatient services in accordance with the 2-midnight benchmark. Estimated LOS (days): 2 days is the estimated time the patient will need to remain in the hospital, assuming treatment plan goals are met and no additional complications. Post-Hospital Plan: Misa Aguilar Oct 28, 2016 21:53
[2016-10-28] MEDS: HYDROmorphone HCL PF 1 MG/ML VIAL IV PUSH PRN (22:53)
[2016-10-29] VITALS: BP 133/85; PULSE 93; RESP 20; TEMP 100; O2SAT 93
[2016-10-29] MEDS: CLINDAMYCIN INJ 900 MG in SODIUM CHLORIDE 0.9% INJ 100 ML IV SCH ×4 (03:58→20:25)
[2016-10-29] MEDS: HYDROmorphone HCL PF 1 MG/ML VIAL IV PUSH PRN ×4 (03:58→20:26)
[2016-10-29] MEDS: DEXAMETHASONE SOD PHOS 4 MG/ML VIAL IV PUSH SCH ×4 (03:58→20:25)
[2016-10-29 06:48] LABS: AUTOMATED NEUTROPHIL # 12.3 TH/MM3 (1.8-7.7); BASOPHIL % 0.1 % (0.0-2.0); HEMO FLAGS DIFF FINAL; LYMPH % 7.3 % (9.0-44.0); MEAN CELL VOLUME 95.8 FL (80.0-100.0); MEAN CORPUSCULAR HEMOGLOBIN 32.9 PG (27.0-34.0); MEAN CORPUSCULAR HGB CONC 34.4 % (32.0-36.0); MONO % 3.8 % (0.0-8.0); NEUT % 88.8 % (16.0-70.0); PLATELET COUNT 235 TH/MM3 (150-450); RED BLOOD COUNT 5.01 MIL/MM3 (4.50-5.90); RED CELL DISTRIBUTION WIDTH 12.7 % (11.6-17.2); WHITE BLOOD COUNT 13.9 TH/MM3 (4.0-11.0)
[2016-10-29 07:13] LABS: BICARBONATE 26.2 MEQ/L (21.0-32.0); POTASSIUM 4.5 MEQ/L (3.5-5.1)
[2016-10-29 08:00] VITALS: BP 118/65; PULSE 80; RESP 19; TEMP 96.9; O2SAT 95
[2016-10-29] MEDS: SODIUM CHLORIDE 0.9% FLUSH 10 ML FLUSH IV FLUSH SCH ×2 (09:00→20:25)
[2016-10-29 12:00] VITALS: BP 116/73; PULSE 78; RESP 20; TEMP 96.9; O2SAT 95
--- NOTE | 2016-10-29 14:45 | HHI.PR ---
Subjective Remarks Pt continues to have swelling which he feels has somewhat improved however he feels that it is "migrating down" to his neck. Pain currently controlled. Denies any CP/SOB/N/V. Able to tolerate a diet. Objective Vitals Vital Signs Date Time Temp Pulse Resp B/P (MAP) Pulse Ox O2 Delivery O2 Flow Rate FiO2 10/29/16 12:00 96.9 78 20 116/73 (87) 95 10/29/16 08:00 96.9 80 19 118/65 (82) 95 10/29/16 00:00 100.0 93 20 133/85 (101) 93 10/28/16 22:38 10/28/16 19:32 109 16 96 Room Air 10/28/16 18:12 99 18 10/28/16 17:19 99.9 106 24 145/98 (114) 96 Room Air I/O 10/28/16 10/28/16 10/28/16 10/29/16 10/29/16 10/29/16 07:00 15:00 23:00 07:00 15:00 23:00 Intake Total 480 ml 346 ml 120 ml Balance 480 ml 346 ml 120 ml Intake Oral 480 ml 240 ml 120 ml IV Total 106 ml # Voids 1 2 Result Diagram: 10/29/16 0533 10/29/16 0533 Imaging Last Impressions Neck CT 10/28/16 0000 Signed Impressions: Service Date/Time: September 19:19 - CONCLUSION: Soft-tissue swelling in the left side of the face and neck region consistent with cellulitis. There does appear to be a more focal 3.3 cm area of low density in the anterior left lateral aspect of the lower face adjacent to the mandible which may be an early abscess forming. A well formed circumferential capsule is not seen at this time. Sebas Beal MD Objective Remarks GENERAL: sitting up on bed. SKIN: Left facial swelling, tender to touch left cheek, along the left mandible and lower neck HEAD: Atraumatic. Normocephalic. EYES: Extraocular motions intact. Mouth: very poor dentition ENT: Nose without drainage. Airway patent. NECK: Trachea midline. No JVD or lymphadenopathy. CARDIOVASCULAR: Regular rate and rhythm without murmurs RESPIRATORY: Clear to auscultation. Breath sounds equal bilaterally. No wheezes GASTROINTESTINAL: Abdomen soft, non-tender, nondistended. MUSCULOSKELETAL: Extremities without edema. NEUROLOGICAL: Awake and alert. Motor and sensory grossly within normal limits. Normal speech. A/P Problem List: (1) Cellulitis and abscess of face ICD Code: L03.211 - Cellulitis of face; L02.01 - Cutaneous abscess of face Status: Acute Assessment and Plan 36-year-old male with no medical history presented to the ED with increased left -sided facial pain Cellulitis and abscess of face, failed outpatient therapy CT of the neck reviewed and showed Soft-tissue swelling in the left side of the face and neck region consistent with cellulitis. There does appear to be a more focal 3.3 cm area of low density in the anterior left lateral aspect of the lower face adjacent to the mandible which may be an early abscess forming. -continue IV antibiotics clindamycin, add cold compresses. -Pain management w IV Dilaudid -IV Decadron for inflammation -I have consulted ENT for further recs, Pt does have an appt w his dentis on tuesday. Leukocytosis, wbc 17.1 on admission and now down to 13.9, suspected due to cellulitis of the face -Cont antibiotics as above -monitor CBC in AM DVT prophylaxis, low risk: SCDs Discharge Planning ENT consult. Continue IV abx, steroids and ice/cold compresses. Marion Tabares MD Oct 29, 2016 14:45
[2016-10-29 16:00] VITALS: BP 134/85; PULSE 83; RESP 19; TEMP 97.3; O2SAT 97
[2016-10-29 19:45] VITALS: PULSE 86
[2016-10-29 20:00] VITALS: BP 118/82; PULSE 84; RESP 17; TEMP 96.3; O2SAT 95
[2016-10-30] VITALS: BP 114/71; PULSE 76; RESP 17; TEMP 97.1; O2SAT 98
[2016-10-30] MEDS: HYDROmorphone HCL PF 1 MG/ML VIAL IV PUSH PRN ×6 (01:57→23:21)
[2016-10-30] MEDS: CLINDAMYCIN INJ 900 MG in SODIUM CHLORIDE 0.9% INJ 100 ML IV SCH ×4 (01:57→21:40)
[2016-10-30 04:00] VITALS: BP 114/73; PULSE 72; RESP 17; TEMP 97.7; O2SAT 98
[2016-10-30] MEDS: DEXAMETHASONE SOD PHOS 4 MG/ML VIAL IV PUSH SCH ×3 (06:14→21:41)
[2016-10-30 06:53] LABS: AUTOMATED NEUTROPHIL # 19.8 TH/MM3 (1.8-7.7); BASOPHIL % 0.2 % (0.0-2.0); EOSINOPHIL % 0.1 % (0.0-4.0); HEMATOCRIT 45.4 % (39.0-51.0); HEMO FLAGS DIFF FINAL; LYMPH % 6.6 % (9.0-44.0); LYMPHOCYTE # 1.5 TH/MM3 (1.0-4.8); MEAN CELL VOLUME 95.8 FL (80.0-100.0); MEAN CORPUSCULAR HEMOGLOBIN 33.5 PG (27.0-34.0); MONO % 4.4 % (0.0-8.0); NEUT % 88.7 % (16.0-70.0); PLATELET COUNT 232 TH/MM3 (150-450); RED BLOOD COUNT 4.74 MIL/MM3 (4.50-5.90); RED CELL DISTRIBUTION WIDTH 12.6 % (11.6-17.2); WHITE BLOOD COUNT 22.3 TH/MM3 (4.0-11.0)
[2016-10-30 07:20] LABS: BICARBONATE 27.2 MEQ/L (21.0-32.0); POTASSIUM 4.2 MEQ/L (3.5-5.1)
[2016-10-30 08:00] VITALS: BP 115/73; PULSE 82; RESP 16; TEMP 96.5; O2SAT 94
[2016-10-30] MEDS: SODIUM CHLORIDE 0.9% FLUSH 10 ML FLUSH IV FLUSH SCH ×2 (08:44→21:00)
[2016-10-30 12:00] VITALS: BP 144/84; PULSE 83; RESP 18; TEMP 96.2; O2SAT 96
--- NOTE | 2016-10-30 15:19 | HHI.PR ---
Subjective Remarks Pt tells me that swelling has gone down but pain is worsening. Pt did see ENT and he is agreeable to transfer to another facility. Pt denies any CP/SOB/N/V Objective Vitals Vital Signs Date Time Temp Pulse Resp B/P (MAP) Pulse Ox O2 Delivery O2 Flow Rate FiO2 10/30/16 12:00 96.2 83 18 144/84 (104) 96 10/30/16 08:00 96.5 82 16 115/73 (87) 94 10/30/16 08:00 82 10/30/16 04:00 97.7 72 17 114/73 (87) 98 10/30/16 00:00 97.1 76 17 114/71 (85) 98 10/29/16 20:00 96.3 84 17 118/82 (94) 95 10/29/16 19:45 86 10/29/16 16:00 97.3 83 19 134/85 (101) 97 I/O 10/29/16 10/29/16 10/29/16 10/30/16 10/30/16 10/30/16 07:00 15:00 23:00 07:00 15:00 23:00 Intake Total 346 ml 432 ml 1346 ml 346 ml 106 ml Output Total 850 ml Balance 346 ml 432 ml 496 ml 346 ml 106 ml Intake Oral 240 ml 120 ml 1240 ml 240 ml IV Total 106 ml 312 ml 106 ml 106 ml 106 ml Output Urine Total 850 ml # Voids 2 2 2 # Bowel Movements 0 Result Diagram: 10/30/16 0545 10/30/16 0545 Imaging Last Impressions Neck CT 10/28/16 0000 Signed Impressions: Service Date/Time: September 19:19 - CONCLUSION: Soft-tissue swelling in the left side of the face and neck region consistent with cellulitis. There does appear to be a more focal 3.3 cm area of low density in the anterior left lateral aspect of the lower face adjacent to the mandible which may be an early abscess forming. A well formed circumferential capsule is not seen at this time. Sebas Beal MD Objective Remarks GENERAL: sitting up on bed. SKIN: Left facial swelling but improved, tender to touch left cheek, along the left mandible and lower neck HEAD: Atraumatic. Normocephalic. EYES: Extraocular motions intact. Mouth: very poor dentition ENT: Nose without drainage. Airway patent. NECK: Trachea midline. No JVD or lymphadenopathy. CARDIOVASCULAR: Regular rate and rhythm without murmurs RESPIRATORY: Clear to auscultation. Breath sounds equal bilaterally. No wheezes GASTROINTESTINAL: Abdomen soft, non-tender, nondistended. MUSCULOSKELETAL: Extremities without edema. NEUROLOGICAL: Awake and alert. Motor and sensory grossly within normal limits. Normal speech. A/P Problem List: (1) Cellulitis and abscess of face ICD Code: L03.211 - Cellulitis of face; L02.01 - Cutaneous abscess of face Status: Acute Assessment and Plan 36-year-old male with no medical history presented to the ED with increased left -sided facial pain Cellulitis and abscess of face, failed outpatient therapy CT of the neck reviewed and showed "Soft-tissue swelling in the left side of the face and neck region consistent with cellulitis. There does appear to be a more focal 3.3 cm area of low density in the anterior left lateral aspect of the lower face adjacent to the mandible which may be an early abscess forming". -continue IV antibiotics clindamycin, cold compresses. -Pain management w IV Dilaudid -IV Decadron for inflammation - ENT has been consulted. I was notified by RN that per their recs pt needs transfer to another facility to be evaluated by oral sx as pt need to have the affected molar extracted as soon as possible. I did call [facility] and spoke w Dr. Carnes, oral sx and he requested that the imaging studies be uploaded for him to review and he will call me back w his decision. Pt does have an appt w his dentist on tuesday. (Pt's dentist, Dr Dara Christian ( [facility]) in [facility]). Leukocytosis, wbc 17.1 on admission and now down to 13.9 then went up to 2.3, suspected due to cellulitis of the face and now steroids -Cont antibiotics as above -monitor CBC in AM DVT prophylaxis, low risk: SCDs Discharge Planning Continue IV abx, steroids and ice/cold compresses. awaiting recs from oral sx from Marion Vargas MD Oct 30, 2016 15:19
[2016-10-30 16:00] VITALS: BP 119/68; PULSE 70; RESP 16; TEMP 97.2; O2SAT 95
--- NOTE | 2016-10-30 17:06 | MB ---
cc: WALTER PRASAD MD DATE OF CONSULTATION 10/30/16 CHIEF COMPLAINT Left facial pain and swelling. HISTORY OF PRESENT ILLNESS A 36-year-old male who presented to the emergency room with left-sided mandibular pain. He reports that he was eating lunch approximately 2 days ago and cracked a tooth while eating, a left lower tooth, tooth #17 apparently. He went to the dentist, was given some antibiotics and ibuprofen but was instructed to go to the emergency room. He is currently scheduled to have the tooth removed on Tuesday from an oral surgeon, but he reports the pain got bad and he came into the emergency. Currently, he feels that it is not improving and if anything it has worsened a little bit right over the area of the tooth. He is having no shortness of breath. A little bit of odynophagia but no other difficulties. PAST MEDICAL HISTORY None. PAST SURGICAL HISTORY Cholecystectomy. OUTPATIENT MEDICATIONS Clindamycin and ibuprofen recently prescribed. ALLERGIES PENICILLIN. SOCIAL HISTORY He has tobacco use history of a half pack per day. Denies alcohol, denies drugs. PHYSICAL EXAMINATION GENERAL: The patient is alert and oriented x3 in no acute distress. VITAL SIGNS: Afebrile. Vital signs stable. HEENT/NECK: Oral cavity shows significantly poor dentition. Tooth 17 and tooth 19 are in very poor dental health. There is significant swelling around tooth 17. The mandible is very tender on the left side. A flexible laryngoscopy performed at bedside shows the airway to be widely patent. Vocal cords are mobile. No mass or lesions or narrowing airway. Neck exam reveals no palpable adenopathy. No palpable nodes. No neck tenderness. The facial exam shows tenderness and swelling of the left mandible in the area of tooth 19 and 17. It is very tender but not fluctuant. HEART: Exam is regular rate and rhythm. LUNGS: Clear to auscultation. ASSESSMENT/PLAN Patient with a significant dental abscess and significant dental caries along tooth 17, 19. Recommend continued IV antibiotics, at this time, the patient would benefit from oral surgery to remove both of these infected teeth as I do not feel his dental abscess is going to improve until the teeth are removed. I also do not feel it is in his best interest to wait till Tuesday to have them from oral surgery. Therefore, my recommendation is evaluation with oral surgery today, whether if it is this hospital or if he is transferred to another local facility that has oral surgery ability to have these teeth examined and removed. Thank you for this consultation. Walter Prasad AT/DANNIELLE /12:27 PM /4:44 PM [place]
[2016-10-30 20:00] VITALS: BP 113/78; PULSE 68; PULSE 70; RESP 18; TEMP 96.7; O2SAT 97
[2016-10-31] VITALS: BP 98/57; PULSE 72; RESP 18; TEMP 96.2; O2SAT 95
[2016-10-31] MEDS: CLINDAMYCIN INJ 900 MG in SODIUM CHLORIDE 0.9% INJ 100 ML IV SCH ×2 (03:18→08:07)
[2016-10-31] MEDS: HYDROmorphone HCL PF 1 MG/ML VIAL IV PUSH PRN ×2 (03:18→08:11)
[2016-10-31 03:58] VITALS: BP 114/73; PULSE 60; RESP 18; TEMP 96.3; O2SAT 95
[2016-10-31] MEDS: DEXAMETHASONE SOD PHOS 4 MG/ML VIAL IV PUSH SCH (05:34)
[2016-10-31 07:32] LABS: AUTOMATED NEUTROPHIL # 11.2 TH/MM3 (1.8-7.7); BASOPHIL % 0.1 % (0.0-2.0); HEMATOCRIT 43.9 % (39.0-51.0); HEMO FLAGS DIFF FINAL; LYMPH % 12.2 % (9.0-44.0); LYMPHOCYTE # 1.6 TH/MM3 (1.0-4.8); MEAN CELL VOLUME 95.7 FL (80.0-100.0); MEAN CORPUSCULAR HEMOGLOBIN 32.9 PG (27.0-34.0); MEAN CORPUSCULAR HGB CONC 34.4 % (32.0-36.0); MONO % 4.1 % (0.0-8.0); NEUT % 83.6 % (16.0-70.0); PLATELET COUNT 236 TH/MM3 (150-450); RED BLOOD COUNT 4.59 MIL/MM3 (4.50-5.90); RED CELL DISTRIBUTION WIDTH 12.5 % (11.6-17.2); WHITE BLOOD COUNT 13.4 TH/MM3 (4.0-11.0)
[2016-10-31 08:00] VITALS: BP 111/73; PULSE 77; RESP 19; TEMP 96.3; O2SAT 97
[2016-10-31] MEDS: SODIUM CHLORIDE 0.9% FLUSH 10 ML FLUSH IV FLUSH SCH (08:07)
[2016-10-31] MEDS ORDERED: oxyCODONE/ACETAMINOPHEN 7.5 MG/325 MG TAB PO ONE (11:30)
[2016-10-31] MEDS ORDERED: OXYC1TAB35 PO (11:33)
[2016-10-31] MEDS ORDERED: PRED20 PO (11:33)
[2016-10-31] MEDS ORDERED: PERI8.6T PO (11:33)
--- NOTE | 2016-10-31 11:47 | HHI.DS ---
Discharge Summary Admission Date Oct 28, 2016 at 20:58 Discharge Date: Oct 31, 2016 Admitting Diagnosis facial cellulitis (1) Cellulitis and abscess of face ICD Code: L03.211 - Cellulitis of face; L02.01 - Cutaneous abscess of face Status: Acute Procedures none Brief History - From Admission 36-year-old male with no medical history presented to the ED with increased left -sided facial pain, patient states yesterday he was eating lunch and he cracked a tooth on some tracy. He went to the dentist and was given antibiotics clindamycin and ibuprofen for pain and was instructed to come to the ED if his pain worsened. He describes the pain as a throbbing pressure pain 10/10 to the left side of his face with swelling extends down his neck, he states the morphine does not usually work for him, he has taken Dilaudid in the past with surgeries and had relief. The plan is to return to the dentist next Tuesday to have his tooth pulled along with one other one. Upon examination patient does appear to have poor dental care with many rotten teeth. He denies any chest pain, shortness of breath, fevers or chills CBC/BMP: 10/31/16 0628 10/30/16 0545 Significant Findings Laboratory Tests Test 10/28/16 18:05 10/28/16 18:25 10/29/16 05:33 10/30/16 05:45 White Blood Count 17.1 TH/MM3 (4.0-11.0) 13.9 TH/MM3 (4.0-11.0) 22.3 TH/MM3 (4.0-11.0) Hemoglobin 18.3 GM/DL (13.0-17.0) Hematocrit 53.1 % (39.0-51.0) Neutrophils (%) (Auto) 70.7 % (16.0-70.0) 88.8 % (16.0-70.0) 88.7 % (16.0-70.0) Monocytes (%) (Auto) 10.5 % (0.0-8.0) Neutrophils # (Auto) 12.1 TH/MM3 (1.8-7.7) 12.3 TH/MM3 (1.8-7.7) 19.8 TH/MM3 (1.8-7.7) Monocytes # (Auto) 1.8 TH/MM3 (0-0.9) 1.0 TH/MM3 (0-0.9) Estimat Glomerular Filtration Rate 85 ML/MIN (>89) 86 ML/MIN (>89) Lymphocytes (%) (Auto) 7.3 % (9.0-44.0) 6.6 % (9.0-44.0) Random Glucose 141 MG/DL (74-106) 121 MG/DL (74-106) Blood Urea Nitrogen 19 MG/DL (7-18) Test 10/31/16 06:28 White Blood Count 13.4 TH/MM3 (4.0-11.0) Neutrophils (%) (Auto) 83.6 % (16.0-70.0) Neutrophils # (Auto) 11.2 TH/MM3 (1.8-7.7) Imaging Last Impressions Neck CT 10/28/16 0000 Signed Impressions: Service Date/Time: September 19:19 - CONCLUSION: Soft-tissue swelling in the left side of the face and neck region consistent with cellulitis. There does appear to be a more focal 3.3 cm area of low density in the anterior left lateral aspect of the lower face adjacent to the mandible which may be an early abscess forming. A well formed circumferential capsule is not seen at this time. Sebas Beal MD PE at Discharge GENERAL: sitting up on bed. SKIN: Left facial swelling but improved, tender to touch left cheek, along the left mandible and lower neck HEAD: Atraumatic. Normocephalic. EYES: Extraocular motions intact. Mouth: very poor dentition ENT: Nose without drainage. Airway patent. NECK: Trachea midline. No JVD or lymphadenopathy. CARDIOVASCULAR: Regular rate and rhythm without murmurs RESPIRATORY: Clear to auscultation. Breath sounds equal bilaterally. No wheezes GASTROINTESTINAL: Abdomen soft, non-tender, nondistended. MUSCULOSKELETAL: Extremities without edema. NEUROLOGICAL: Awake and alert. Motor and sensory grossly within normal limits. Normal speech. Pt update on day of discharge Pt states that his pain is tolerable. He is comfortable going home today. He tells me that he has an appt on tuesday w dentist and oral surgeon on tuesday and at that office wednesdays is the only day the oral surgeon is there. He denies any CP/SOB/N/V. He tells me that he already has a script for clindamycin and shows me the bottle. he has 19 tablets left of the 300mg tablets. He is hopeful he doesn't have to buy more. Hospital Course 36-year-old male with no medical history presented to the ED with increased left -sided facial pain Cellulitis and abscess of face, failed outpatient therapy CT of the neck reviewed and showed "Soft-tissue swelling in the left side of the face and neck region consistent with cellulitis. There does appear to be a more focal 3.3 cm area of low density in the anterior left lateral aspect of the lower face adjacent to the mandible which may be an early abscess forming". -on IV antibiotics clindamycin, cold compresses. -Pain management w IV Dilaudid prn and percocets -IV Decadron for inflammation but will switch to po prednisone. -ENT evaluated the pt and recommended evaluation from oral sx as soon as possible. I did call [facility] and spoke w Dr. Carnes, oral sx and he reviewed imaging studies and from his standpoint pt does need drainage of the abscess but this can be done on tuesday when he sees dentist/oral sx. In the meantime, he recommends sending pt on oral clindamycin as pt is allergic to PNC and continue pain control. Pt confirms that he has an appt w oral surgery on tuesday11/03/16. Pt has already filled his script for the clindamycin. I have increased the dose to 600mg po TID. Pt does have enough clindamycin capsules to get him through tuesday. I will write another one for now. I will defer to surgeon if abx needs to be continued. I will give him 3 more days of steroids and script for percocet has been provided. Leukocytosis, wbc 17.1 on admission and now down to 13.9 then went up to 2.3, suspected due to cellulitis of the face and now steroids -Cont antibiotics as above DVT prophylaxis, low risk: SCDs Pt Condition on Discharge: Stable Discharge Disposition: Discharge Home Discharge Time: > 30 minutes Discharge Instructions DIET: Follow Instructions for: As Tolerated, No Restrictions Activities you can perform: Regular-No Restrictions Follow up Referrals: Oral Maxillary Surgery - 11/03/16 PCP Follow-up - 1 Week New Medications: Prednisone (Prednisone) 20 Mg Tab 40 MG PO DAILY for 3 Days, TAB 0 Refills Sennosides-Docusate Sodium (Jeanne-Colace) 8.6-50 Mg Tab 1 TAB PO BID PRN for Constipation, #60 TAB 0 Refills Oxycodone-Acetaminophen (Oxycodone-Acetaminophen) 7.5-325 mg Tab 1 TAB PO Q4-6H PRN for PAIN SCALE 6 TO 10, #20 TAB Additional Information Pt already has 19 capsule of clindamycin 300mg po. Pt to take 600mg po TID until tuesday. Marion Tabares MD Oct 31, 2016 11:47
[2016-10-31 12:00] VITALS: BP 119/78; PULSE 82; RESP 19; TEMP 96.4; O2SAT 97
[2016-10-31] MEDS ORDERED: oxyCODONE/ACETAMINOPHEN 7.5 MG/325 MG TAB PO PRN (16:00)
== END 2016-10-31 14:17 | disposition home or self-care (01) | DRG 158 ==
LOC: NEPE 17:17 → NEDA 20:58 → N07B 22:37
PROVIDERS: ADMIT Hospitalist; ATTEND Hospitalist
DX: K04.7 Periapical abscess without sinus (principal); L02.01 Cutaneous abscess of face; R13.10 Dysphagia, unspecified; L03.211 Cellulitis of face; K21.9 Gastro-esophageal reflux disease without esophagitis; S02.5XXA Fracture of tooth (traumatic), initial encounter for closed fracture; K02.9 Dental caries, unspecified; Z72.0 Tobacco use; Z88.0 Allergy status to penicillin
CPT/HCPCS: 70491; 80048; 85025; 85610; 85730; 96361; 96365; 96375; J1100; J1170; J2270; J2405; J7030; Q9967